=== PATIENT | female | born 1935 | race Asian ===

== ENCOUNTER 2016-09-01 19:34 | Inpatient (IN) | payer MEDICARE ==
[2015-10-09 14:48] VITALS: Ht 152.4 cm; Wt 58.5 kg
[~2016-09-01] VITALS: Ht 152.4 cm; Wt 58.5 kg
[~2016-09-01 19:34] MED LIST: AMLO5TAB92 PO; CAT.1 PO; COLC0.6T51 PO; FAMO40TA7 PO; FERR-57 PO; FOLI-43 PO; GLIP5TAB13 PO; LISI-600 PO; LOSA50TA3 PO; LOVA20TA2 PO; METO50TA3 PO
[2016-09-01 19:40] VITALS: BP 145/59; PULSE 58; RESP 19; TEMP 97.3; O2SAT 96
--- NOTE | 2016-09-01 19:55 | NUR ---
Patient to ER bed 03 to gown for evaluation. Side rails up.
--- NOTE | 2016-09-01 20:05 | NUR ---
pt brought to ED by family member with c/o SOB x1 day, cough&cold x1 week. Pt appeared to have tachypnea, O2 sat at 97% on RA, 3+ edema at BUE and BLE, non-labor breathing, no use of accessory muscle noted, ambulatory. A&Ox4, denies chestpain, denies N/V/D. Will continue to monitor
--- NOTE | 2016-09-01 20:20 | NUR ---
at bedside examining pt
[2016-09-01 21:01] LABS: BASOPHILS % (AUTO) 0.4 % (0.0-2.0); EOSINOPHILS # (AUTO) 0.3 K/uL (0.0-0.4); HEMATOCRIT 34.9 % (36-48); HEMOGLOBIN 11.5 g/dL (12.0-16.0); LYMPHOCYTES # (AUTO) 0.6 K/uL (1.0-5.5); LYMPHOCYTES % (AUTO) 6.9 % (20.5-51.5); MEAN CORPUSCULAR HEMOGLOBIN 26 pg (27-31); MEAN CORPUSCULAR HGB CONC 33 % (32-36); MEAN CORPUSCULAR VOLUME 79 fL (79.0-98.0); MONOCYTES # (AUTO) 0.5 K/uL (0.0-1.0); MONOCYTES % (AUTO) 5.9 % (1.7-9.3); NEUTROPHILS # (AUTO) 7.5 K/uL (1.8-7.7); NEUTROPHILS % (AUTO) 83.8 % (40.0-70.0); PLATELET COUNT (AUTO) 230 K/uL (130-430); RED BLOOD CELL COUNT(AUTO) 4.42 MIL/uL (4.2-6.2); RED CELL DISTRIBUTION WIDTH 14.9 % (9.0-15.0); WHITE BLOOD COUNT (AUTO) 8.9 K/uL (4.8-10.8)
[2016-09-01 21:16] LABS: ANION GAP 9 (5-15); CALCIUM 8.4 mg/dL (8.4-11.0); CHLORIDE 94 mmol/L (98-107); CREATININE 3.78 mg/dL (0.55-1.30); GLUCOSE 133 mg/dL (70-99); POTASSIUM 4.6 mmol/L (3.5-5.1); SODIUM SERUM 126 mmol/L (136-145); UREA NITROGEN, BLOOD 43 mg/dL (8-21)
[2016-09-01 21:25] LABS: ALANINE AMINOTRANSFERASE 20 U/L (12-78); ASPARTATE AMINOTRANSFERASE 54 U/L (10-37); CREATINE KINASE, TOTAL 132 U/L (26-192); TOTAL BILIRUBIN 0.3 mg/dL (0.0-1.0); TOTAL PROTEIN, SERUM 6.6 g/dL (6.4-8.3)
--- NOTE | 2016-09-01 21:30 | NUR ---
Pt in bed , family at bed, no distress noted
[2016-09-01 21:56] LABS: BILIRUBIN,URINE NEGATIVE (NEGATIVE); COLOR,URINE YELLOW (YELLOW); GLUCOSE,URINE TRACE (NEGATIVE); KETONES,URINE NEGATIVE (NEGATIVE); LEUKOCYTE ESTERASE ,URINE NEGATIVE (NEGATIVE); NITRITE, URINE POSITIVE (NEGATIVE); PROTEIN URINE 3+ (NEGATIVE); UROBILINOGEN,URINE 0.2 (0.2-1.0)
[2016-09-01 21:57] LABS: BLOOD, URINE TRACE (NEGATIVE); CLARITY/URINE HAZY (CLEAR)
[2016-09-01] MEDS ORDERED: FUROSEMIDE 40 MG/4 ML VIAL IVP ONE (22:00)
[2016-09-01 22:06] LABS: BACTERIA,URINE MANY /HPF (None Seen); MUCUS,URINE None Seen /LPF (None Seen); RBC,URINE NONE SEEN /HPF (0-3); WBC,URINE >100 /HPF (0-3)
[2016-09-01] MEDS ORDERED: cefTRIAXone 1 GM IVPB PREMIX 50 ML IV ONE (22:30)
--- NOTE | 2016-09-01 22:30 | NUR ---
Pt denies pain, O2 sat 98% on RA, will continue to monitor
[2016-09-01] MEDS ORDERED: SODI650T PO (22:32)
[2016-09-01] MEDS ORDERED: HYDR-4039 PO (22:34)
[2016-09-01] MEDS ORDERED: MAGN400T10 PO (22:39)
[2016-09-01] MEDS ORDERED: AZIT250T PO (22:40)
[2016-09-01] MEDS ORDERED: FURO-150 PO (22:41)
[2016-09-01] MEDS ORDERED: BECL8.7A5 INH (22:42)
[2016-09-01] MEDS ORDERED: PHEDM120 PO (22:43)
[2016-09-01] MEDS ORDERED: ALBU8.5H8 INH (23:02)
--- NOTE | 2016-09-01 23:05 | NUR ---
admission delay, pt went to US
--- NOTE | 2016-09-01 23:25 | NUR ---
opening notes report given at bedside by
--- NOTE | 2016-09-01 23:25 | NUR ---
Patient will be admitted to care of . Admitted to telemetry unit. Will go to room 100B. Belongings list completed. Summary report printed. Report given to Елена BULLOCKdigital commentator to 100B via ACLS protocol. 2 Licensed nurse present. IV present no signs or symptoms of infiltration.
[2016-09-01 23:45] VITALS: BP 150/70; PULSE 58; RESP 20; TEMP 97.3; O2SAT 96
[2016-09-01] MEDS ORDERED: ZOLPIDEM TARTRATE 5 MG TABLET PO PRN (23:45)
[2016-09-01] MEDS ORDERED: cloNIDine HCL 0.1 MG TABLET PO PRN (23:45)
--- NOTE | 2016-09-01 23:45 | NUR ---
OPENING NOTES PATIENT IS RESTING. PATIENT IS SHORT OF BREATH, PULSE OXIMETRY READING IS 96-97%. BED IN LOWEST POSITION, BED ALARM ON, CALL LIGHT WITHIN REACH. WILL CONTINUE TO MONITOR FREQUENTLY.
[2016-09-02] VITALS (9 sets, daily range): BP systolic 117–158; BP diastolic 59–76; PULSE 58–127; RESP 16–20; TEMP 96.8–99; O2SAT 93–98
--- NOTE | 2016-09-02 01:00 | NUR ---
ROUNDS PATIENT IS RESTING COMFORTABLY. NOTABLE RISE AND FALL OF CHEST VISUALIZED. NO SIGNS OR SYMPTOMS OF DISTRESS. PATIENT UPDATED ON PLAN OF CARE. NO SIGNS OR SYMPTOMS OF DISTRESS NOTED. BED IN LOWEST POSITION, BED ALARM ON, CALL LIGHT WITHIN REACH. WILL CONTINUE TO MONITOR.
--- NOTE | 2016-09-02 02:00 | NUR ---
ROUNDS PATIENT IS WHEEZING. DR. BOOTH WILL BE NOTIFIED
--- NOTE | 2016-09-02 02:16 | NUR ---
DR. EMMY SWENSON. NOTIFIED OF PATIENTS WHEEZING. GAVE VERBAL ORDERS FOR TWO ADDITIONAL BREATHING TREATMENTS BEFORE 7AM DOSAGE.
[2016-09-02] MEDS ORDERED: IPRATROPIUM/ALBUTEROL SULFATE 3 ML AMPUL.NEB INH ONE ×2 (02:45)
[2016-09-02] MEDS ORDERED: IPRATROPIUM/ALBUTEROL SULFATE 3 ML AMPUL.NEB ONE (02:50)
--- NOTE | 2016-09-02 03:00 | NUR ---
ROUNDS PATIENT WAS RESTING IN BED. GOWN AND BLANKETS WERE WET FROM WEEPING ARMS DUE TO THE EDEMA. GOWN AND BLANKETS WERE CHANGED. IV SITE LOOKED INFILTRATED AND DID NOT FLUSH. IV ON LEFT HAND D/C. PATIENT IS A HARD STICK. RESOURCE NURSE WAS ASKED TO START IV. PATIENT IS NOW RESTING COMFORTABLY, NO NOTABLE SIGNS OR SYMPTOMS OF DISTRESS. BED IN LOWEST POSITION, BED ALARM ON. CALL LIGHT WITHIN REACH. WILL CONTINUE TO MONITOR.
--- NOTE | 2016-09-02 03:07 | NUR ---
CONSULTATION PAGED REASON FOR CONSULTATION:CHF WAS CONSULT CALLED?Y PERSON WHO WAS NOTIFIED:RESHMA CONSULTING PHYSICIAN:NANDINI JIMENEZ (ROSETTE ANDRADE NARCOTICS INVESTIGATOR) SADDLE AND HARNESS MAKER SPECIALTY:CARDIO SADDLE AND HARNESS MAKER PHONE NUMBER:[phone]
--- NOTE | 2016-09-02 03:16 | NUR ---
CONSULTATION PAGED REASON FOR CONSULTATION:HYPONATREMIA, ARF, CHF WAS CONSULT CALLED?Y PERSON WHO WAS NOTIFIED:RESHMA CONSULTING PHYSICIAN:TAD GORE PAPER MAKER SPECIALTY:NEPHROLOGY PAPER MAKER PHONE NUMBER:[phone]
--- NOTE | 2016-09-02 05:00 | NUR ---
IV PLACEMENT: # 24 gauge angiocath placed to right hand. Use of asceptic technique. Opsite placed over site. Blood return noted. Blood for lab from site. Flushed with cc of normal saline. No evidence of infiltration noted. Patient tolerated. Addendum: 09/02/16 at 0530 by Beth Bobo RN IV PLACEMENT: # 24 gauge angiocath placed to right hand. Use of asceptic technique. Opsite placed over site. Blood return noted. Blood for lab from site. Flushed with 10 cc of normal saline. No evidence of infiltration noted. Patient tolerated.
--- NOTE | 2016-09-02 06:55 | NUR ---
CLOSING NOTES PATIENT RESTING COMFORTABLY. NO SIGNS OR SYMPTOMS OF DISTRESS. ALL NEEDS MET THROUGHOUT SHIFT. FALL RISK PRECAUTIONS IN PLACE. WILL ENDORSE CARE TO ONCOMING NURSE.
[2016-09-02] MEDS: IPRATROPIUM/ALBUTEROL SULFATE 3 ML AMPUL.NEB INH SCH ×2 (07:00→16:35)
--- NOTE | 2016-09-02 07:30 | NUR ---
rn ntoes: patient is aaox 3-4. afebrile. vss stable. left arm edematous and weeping. apply white kayleigh due to leaking fluids on it. rt arm edematous but no weeping noted. rt hand #24. dry/intact saline lock. call lights within reach. safety measures maintained. bed in low position. hob elevated. has bedside commode and instructed patient to call for assistance. will continue to monitor patients status.
[2016-09-02 07:51] LABS: BASOPHILS % (AUTO) 0.4 % (0.0-2.0); EOSINOPHILS # (AUTO) 0.2 K/uL (0.0-0.4); EOSINOPHILS % (AUTO) 2.6 % (0.0-4.0); HEMATOCRIT 34.2 % (36-48); HEMOGLOBIN 11.4 g/dL (12.0-16.0); LYMPHOCYTES # (AUTO) 0.9 K/uL (1.0-5.5); LYMPHOCYTES % (AUTO) 10.7 % (20.5-51.5); MEAN CORPUSCULAR HEMOGLOBIN 27 pg (27-31); MEAN CORPUSCULAR HGB CONC 33 % (32-36); MEAN CORPUSCULAR VOLUME 80 fL (79.0-98.0); MONOCYTES # (AUTO) 0.7 K/uL (0.0-1.0); MONOCYTES % (AUTO) 7.7 % (1.7-9.3); NEUTROPHILS # (AUTO) 6.8 K/uL (1.8-7.7); NEUTROPHILS % (AUTO) 78.6 % (40.0-70.0); PLATELET COUNT (AUTO) 211 K/uL (130-430); RED BLOOD CELL COUNT(AUTO) 4.28 MIL/uL (4.2-6.2); RED CELL DISTRIBUTION WIDTH 14.8 % (9.0-15.0); WHITE BLOOD COUNT (AUTO) 8.6 K/uL (4.8-10.8)
[2016-09-02 08:32] LABS: ALANINE AMINOTRANSFERASE 22 U/L (12-78); ALBUMIN 3.1 g/dL (3.4-4.8); ANION GAP 9 (5-15); ASPARTATE AMINOTRANSFERASE 53 U/L (10-37); CALCIUM 8.4 mg/dL (8.4-11.0); CHLORIDE 92 mmol/L (98-107); CREATININE 3.84 mg/dL (0.55-1.30); GLUCOSE 94 mg/dL (70-99); POTASSIUM 4.2 mmol/L (3.5-5.1); SODIUM SERUM 127 mmol/L (136-145); THYROID STIMULATING HORMONE 1.32 uIu/mL (0.34-4.82); TOTAL BILIRUBIN 0.3 mg/dL (0.0-1.0); TOTAL PROTEIN, SERUM 6.8 g/dL (6.4-8.3); UREA NITROGEN, BLOOD 43 mg/dL (8-21); URIC ACID 8.9 mg/dL (2.4-7.0)
[2016-09-02] MEDS ORDERED: amLODIPine BESYLATE 5 MG TABLET PO SCH (09:00)
[2016-09-02] MEDS: FUROSEMIDE 40 MG/4 ML VIAL IVP SCH (09:08)
[2016-09-02] MEDS: hydrALAZINE HCL 25 MG TABLET PO SCH ×2 (09:09→20:43)
[2016-09-02] MEDS: METOPROLOL TARTRATE 50 MG TABLET PO SCH ×2 (09:10→20:43)
[2016-09-02] MEDS: FAMOTIDINE 20 MG TABLET PO SCH (09:10)
--- NOTE | 2016-09-02 09:14 | NUR ---
due medication given as ordered. made comfortable. brp with assists. has bedside commode.
--- NOTE | 2016-09-02 10:30 | NUR ---
Dr Garces informed of Na is 127. made no order at this time. and informed regarding Scds bilaterally. said will gave heparin subcu
--- NOTE | 2016-09-02 11:00 | NUR ---
DR BOOTH INFORMED OF SCDS. SAID NO WILL ORDER HEPARIN THERAPY
[2016-09-02] MEDS ORDERED: HEPARIN SODIUM,PORCINE 5000 UNITS/ML VIAL SUBCUT ONE (12:30)
--- NOTE | 2016-09-02 14:16 | NUR ---
CANCELLED NEPHROLOGY CONSULT TO DR HILL., CALLED DR MADRIGAL PER DR PERALES THE AIR CARRIER MAINTENANCE INSPECTOR. SPOKE TO BOTH MDS
--- NOTE | 2016-09-02 14:35 | NUR ---
daughter came and bed linen changed. hob elevated.
--- NOTE | 2016-09-02 14:40 | NUR ---
Nephro Consult: for Dr. Coyle, regarding CKD, ordered by Dr. Wei, spoke with
--- NOTE | 2016-09-02 15:00 | NUR ---
due medication given as ordered. made comfortable.
--- NOTE | 2016-09-02 16:21 | NUR ---
pls follow up physical therapy. not yet evaluated.
--- NOTE | 2016-09-02 16:26 | NUR ---
please follow up for Dr Kinsey as a consult. awaiting for to call back.
[2016-09-02] MEDS: INSULIN ASPART 100 UNITS/ML, 10 ML VIAL (NovoLOG) SUBCUT PRN ×2 (17:22→21:49)
--- NOTE | 2016-09-02 18:00 | NUR ---
LATEST BS IS 114MG/DL. NO COVERAGE GIVEN AT THIS TIME. STABLE.
--- NOTE | 2016-09-02 18:51 | NUR ---
ASLEEP AT THIS TIME. STABLE. NO FAMILY AT THE BEDSIDE.
--- NOTE | 2016-09-02 19:30 | NUR ---
sbar report given to incoming nurse BETO BULLOCK.
--- NOTE | 2016-09-02 19:35 | NUR ---
INITIAL NOTE Patient resting on the bed. No acute distress. Respiration even and unlabored. No acute distress. AO x 4. VS: T=99.0, P=90, R=20, B/P=158/76, O2 sat=95%RA. Skin warm and dry to touch. SL intact to right hand, no redness, no swelling. Daughter at bedside. Discussed the safety issue, use call light when need help, and plan of care, verbally understanding. Safety measure maintained. Call light within reached. Bed in low position, side rails up, bed alarm on. Bedside commode at bedside. Will continue to monitor.
[2016-09-02] MEDS: SIMVASTATIN 10 MG TABLET PO SCH (20:42)
[2016-09-02] MEDS: HEPARIN SODIUM,PORCINE 5000 UNITS/ML VIAL SUBCUT SCH (20:46)
--- NOTE | 2016-09-02 21:20 | NUR ---
ROUND Patient resting on the bed. Denied of pain. No acute distress. Family at bedside. Safety measure maintained. Call light within reached. Bed in low position, side rails up. Continue to monitor.
--- NOTE | 2016-09-02 23:10 | NUR ---
ROUND Patient resting on the bed with eyes closed. respiration even and unlabored. No acute distress. Safety measure maintained. Call light within reached. Bed in low position, side rails up. Continue to monitor.
[2016-09-02] MEDS: cefTRIAXone 1 GM IVPB PREMIX 50 ML IV SCH (23:31)
[2016-09-03 00:44] VITALS: BP 132/61; PULSE 63; RESP 20; TEMP 98.7; O2SAT 96
--- NOTE | 2016-09-03 01:35 | NUR ---
ROUND Patient resting on the bed with eyes closed. Respiration even and unlabored. No acute distress. Safety measure maintained. Call light within reached. Bed in low position, side rails up. Continue to monitor.
--- NOTE | 2016-09-03 03:40 | NUR ---
ROUND Patient resting on the bed with eyes closed. Respiration even and unlabored. No acute distress. No SOB. Bed in low position, side rails up, laura alarm on. Call light within reached. Continue to monitor.
[2016-09-03 04:30] VITALS: BP 138/70; PULSE 87; RESP 20; TEMP 97.8; O2SAT 95
--- NOTE | 2016-09-03 05:10 | NUR ---
SENT URINE SAMPLE TO LAB Assisted patient to use bedside commode. No acute distress. Urine sample collected and sent to lab.
--- NOTE | 2016-09-03 06:50 | NUR ---
CLOSING NOTE Patient resting on the bed. Denied of pain. Respiration even and unlabored. No acute distress. SL intact to right hand, no redness, no swelling. All need met. Hourly rounding during shift. Safety measure maintained. Call light within reached. Bed in low position, side rails up, bed alarm on. Will endorse to morning shift nurse.
[2016-09-03 07:36] LABS: ALANINE AMINOTRANSFERASE 21 U/L (12-78); ALBUMIN 2.8 g/dL (3.4-4.8); ANION GAP 8 (5-15); ASPARTATE AMINOTRANSFERASE 51 U/L (10-37); CALCIUM 8.2 mg/dL (8.4-11.0); CHLORIDE 94 mmol/L (98-107); CHOLESTEROL 145 mg/dL (<200); CREATININE 3.92 mg/dL (0.55-1.30); GLUCOSE 90 mg/dL (70-99); HDL CHOLESTEROL 80 mg/dL (>55); LDL CHOLESTEROL 48 mg/dL (<100); POTASSIUM 4.2 mmol/L (3.5-5.1); SODIUM SERUM 129 mmol/L (136-145); TOTAL BILIRUBIN 0.3 mg/dL (0.0-1.0); TOTAL PROTEIN, SERUM 6.3 g/dL (6.4-8.3); TRIGLYCERIDES 50 mg/dL (30-150); UREA NITROGEN, BLOOD 45 mg/dL (8-21)
[2016-09-03 07:36] LABS: BASOPHILS % (AUTO) 0.5 % (0.0-2.0); EOSINOPHILS # (AUTO) 0.3 K/uL (0.0-0.4); HEMATOCRIT 33.8 % (36-48); LYMPHOCYTES # (AUTO) 0.7 K/uL (1.0-5.5); LYMPHOCYTES % (AUTO) 9.3 % (20.5-51.5); MEAN CORPUSCULAR HEMOGLOBIN 26 pg (27-31); MEAN CORPUSCULAR HGB CONC 33 % (32-36); MEAN CORPUSCULAR VOLUME 80 fL (79.0-98.0); MONOCYTES # (AUTO) 0.7 K/uL (0.0-1.0); MONOCYTES % (AUTO) 8.7 % (1.7-9.3); NEUTROPHILS # (AUTO) 6.1 K/uL (1.8-7.7); NEUTROPHILS % (AUTO) 77.5 % (40.0-70.0); PLATELET COUNT (AUTO) 187 K/uL (130-430); RED BLOOD CELL COUNT(AUTO) 4.24 MIL/uL (4.2-6.2); WHITE BLOOD COUNT (AUTO) 7.8 K/uL (4.8-10.8)
--- NOTE | 2016-09-03 08:30 | NUR ---
Handoff rounds. Vital signs. Decreased am intake for breakfast. Patient sleep demands are outweighing po intake.
[2016-09-03 08:33] VITALS: BP 143/67; PULSE 92; RESP 20; TEMP 97.6; O2SAT 98
--- NOTE | 2016-09-03 08:58 | NUR ---
Nutrition Update Osorio Scale 17 noted. Pt admitted for CHF, UTI. Diet: 2gm Na BMI: 25.2 kg/m2 RD to follow per nutrition care standards.
[2016-09-03] MEDS: FAMOTIDINE 20 MG TABLET PO SCH (09:25)
[2016-09-03] MEDS: METOPROLOL TARTRATE 50 MG TABLET PO SCH ×2 (09:26→22:17)
[2016-09-03] MEDS: hydrALAZINE HCL 25 MG TABLET PO SCH ×2 (09:26→22:18)
[2016-09-03] MEDS: FUROSEMIDE 40 MG/4 ML VIAL IVP SCH (09:27)
[2016-09-03] MEDS: HEPARIN SODIUM,PORCINE 5000 UNITS/ML VIAL SUBCUT SCH ×2 (09:28→22:22)
--- NOTE | 2016-09-03 10:32 | NUR ---
Rounds to patient. Needs met. Side lying. Breathing/snoring at baseline.
[2016-09-03 11:40] VITALS: BP 120/70; PULSE 92; RESP 18; TEMP 97.9; O2SAT 98
--- NOTE | 2016-09-03 12:39 | NUR ---
Rounds to patient by surgeon. Call from Doctor Coyle who notes family agrees with patient need for dialysis last hour. Attending Doctor Rounds last hour.
[2016-09-03] MEDS ORDERED: HEPARIN IV FLUSH 300 UNITS/3ML SYR INJ ONE (14:45)
[2016-09-03] MEDS: IPRATROPIUM/ALBUTEROL SULFATE 3 ML AMPUL.NEB INH SCH ×2 (15:59→23:45)
[2016-09-03 16:02] VITALS: BP 141/70; PULSE 90; RESP 18; TEMP 97.9; O2SAT 98
--- NOTE | 2016-09-03 19:30 | NUR ---
PM ASSESSMENT PT. CURRENTLY RECEIVING DIALYSIS AT THIS TIME, DIALYSIS NURSE AT BEDSIDE, NOTED WITH LEFT CHEST ERIN CATHETER, VITAL SIGNS STABLE, NO DISTRESS NOTED, DENIES PAIN, UPDATED WITH PLAN OF CARE, ENCOURAGED PT. TO USE CALL LIGHT FOR ASSISTANCE, CALL LIGHT WITHIN REACH, WILL CONTINUE TO MONITOR.
[2016-09-03 19:50] VITALS: BP 159/78; PULSE 90; RESP 18; TEMP 97.8; O2SAT 97
--- NOTE | 2016-09-03 22:00 | NUR ---
HEMODIALYSIS DONE HD DONE, OUTPUT 2L.
--- NOTE | 2016-09-03 22:10 | NUR ---
ACCUCHECK BLOOD KMLYI=606, NO COVERAGE REQUIRED. WILL CONTINUE TO MONITOR.
[2016-09-03] MEDS: SIMVASTATIN 10 MG TABLET PO SCH (22:17)
[2016-09-03] MEDS: cefTRIAXone 1 GM IVPB PREMIX 50 ML IV SCH (22:23)
--- NOTE | 2016-09-04 | NUR ---
RN ROUNDS PT. RESTING QUIETLY AT THIS TIME, VITAL SIGNS STABLE, NO DISTRESS NOTED, DENIES PAIN, CALL LIGHT WITHIN REACH, WILL CONTINUE TO MONITOR.
[2016-09-04 00:11] VITALS: BP 152/85; PULSE 88; RESP 18; TEMP 98.6; O2SAT 96
--- NOTE | 2016-09-04 02:00 | NUR ---
RN ROUNDS PT. RESTING QUIETLY AT THIS TIME, VITAL SIGNS STABLE, NO DISTRESS NOTED, DENIES PAIN, CALL LIGHT WITHIN REACH, WILL CONTINUE TO MONITOR.
--- NOTE | 2016-09-04 04:00 | NUR ---
RN ROUNDS PT. RESTING QUIETLY AT THIS TIME, VITAL SIGNS STABLE, NO DISTRESS NOTED, DENIES PAIN, CALL LIGHT WITHIN REACH, WILL CONTINUE TO MONITOR.
[2016-09-04 04:06] VITALS: BP 144/67; PULSE 93; RESP 20; TEMP 98.7; O2SAT 93
--- NOTE | 2016-09-04 06:25 | NUR ---
ACCUCHECK AND CLOSING NOTES BLOOD VYEPY=448, NO COVERAGE REQUIRED. VITAL SIGNS STABLE, NO DISTRESS NOTED, DENIES PAIN, ALL ANTICIPATED NEEDS MET, KEPT COMFORTABLE.
[2016-09-04 06:48] LABS: ANION GAP 7 (5-15); CALCIUM 8.1 mg/dL (8.4-11.0); CHLORIDE 97 mmol/L (98-107); CREATININE 2.74 mg/dL (0.55-1.30); GLUCOSE 96 mg/dL (70-99); POTASSIUM 3.6 mmol/L (3.5-5.1); SODIUM SERUM 133 mmol/L (136-145); UREA NITROGEN, BLOOD 24 mg/dL (8-21)
[2016-09-04] MEDS: IPRATROPIUM/ALBUTEROL SULFATE 3 ML AMPUL.NEB INH SCH ×3 (07:12→23:16)
[2016-09-04 10:10] VITALS: BP 166/71; PULSE 92; RESP 16; TEMP 97.3; O2SAT 93
[2016-09-04] MEDS: hydrALAZINE HCL 25 MG TABLET PO SCH ×2 (10:11→21:08)
[2016-09-04] MEDS: FUROSEMIDE 40 MG/4 ML VIAL IVP SCH (10:12)
[2016-09-04] MEDS: METOPROLOL TARTRATE 50 MG TABLET PO SCH ×2 (10:12→21:08)
[2016-09-04] MEDS: FAMOTIDINE 20 MG TABLET PO SCH (10:12)
[2016-09-04] MEDS: HEPARIN SODIUM,PORCINE 5000 UNITS/ML VIAL SUBCUT SCH ×2 (10:16→21:10)
[2016-09-04 10:22] LABS: URINE SODIUM, RANDOM 54 mmol/L (40-220)
[2016-09-04 13:47] VITALS: BP 145/62; PULSE 67; RESP 16; TEMP 97.7; O2SAT 95
--- NOTE | 2016-09-04 15:45 | NUR ---
CM DC PLANNING: RE: OUT-Pt HEMODIALYSIS REC'D MD ORDER TO SET-UP OUT-Pt HD FOR DC PLAN ON 09/05/16. LEFT MESSAGE WITH MD EXCHANGE FOR CALL BACK. S/W WITH NEPHRO/DR. NICHOLSON LARGE ANIMAL VETERINARIAN FOR DR. MADRIGAL TODAY OUT HEMODIALYSIS PREFERENCE FOR Pt. DR. NICHOLSON STATED HE IS NOT DISCHARGING Pt TOMORROW; FURTHER SET-UP CAN BE ARRANGED ON TUESDAY AND THERE IS NO SAT HD AT THEIR PREFERRED CENTER: [facility]: [phone]. CALLED TO [address] WEEKEND ON-CALL CM TO OBTAIN OK IF ABOVE CENTER IS AUTHORIZED; [phone]; HAD TO CALL SEVERAL TIMES TO GET CONTACT WITH CM/NATALIE; FINALLY, REC'D C/F MARIBEL WHO STATED THAT SHE DOESN'T KNOW; AND REFUSED TO TAKE NAME OF MDs TO SEE IF THEY ARE ALSO CONTRACTED BECAUSE [facility] COVERS COSTS OF MD SERVICES; SHE DID NOT HAVE WEEKEND CONTACT FOR ACCOUNTABLE CM. OUT-Pt HD WILL HAVE TO BE COORDINATED ON 09/06/16 WITH BOTH [facility] . INFO FOR FOLLOW-UP LEFT FOR WEEKDAY CMs.
[2016-09-04] MEDS: INSULIN ASPART 100 UNITS/ML, 10 ML VIAL (NovoLOG) SUBCUT PRN (16:54)
[2016-09-04 17:39] VITALS: BP 148/64; PULSE 78; RESP 18; TEMP 99.2; O2SAT 95
[2016-09-04 19:30] VITALS: BP 155/73; PULSE 94; RESP 18; TEMP 98.1; O2SAT 95
--- NOTE | 2016-09-04 19:30 | NUR ---
PM ASSESSMENT PT. A/OX4, VITAL SIGNS STABLE, NO DISTRESS NOTED, DENIES PAIN, NOTED WITH LEFT CHEST ERIN CATHETER IN PLACE, NOTED WITH BILATERAL UPPER EXTREMITY EDEMA 2+, UPDATED WITH PLAN OF CARE, ENCOURAGED PT. TO USE CALL LIGHT FOR ASSISTANCE, CALL LIGHT WITHIN REACH, WILL CONTINUE TO MONITOR.
[2016-09-04] MEDS: SIMVASTATIN 10 MG TABLET PO SCH (21:08)
--- NOTE | 2016-09-04 21:35 | NUR ---
ACCUCHECK BLOOD SKXSS=940, NO COVERAGE REQUIRED, WILL CONTINUE TO MONITOR.
[2016-09-04] MEDS: cefTRIAXone 1 GM IVPB PREMIX 50 ML IV SCH (22:25)
--- NOTE | 2016-09-04 23:34 | NUR ---
BSC ASSISTED PT. TO USE BEDSIDE COMMODE, PT. VOIDED 300 CC CLEAR YELLOW URINE, ASSISTED SAFELY BACK INTO BED.
[2016-09-05] VITALS (7 sets, daily range): BP systolic 136–180; BP diastolic 71–94; PULSE 69–105; RESP 16–18; TEMP 96.6–99; O2SAT 94–100
--- NOTE | 2016-09-05 01:30 | NUR ---
RN ROUNDS PT. RESTING QUIETLY, VITAL SIGNS STABLE, NO DISTRESS NOTED, DENIES PAIN, CALL LIGHT WITHIN REACH, WILL CONTINUE TO MONITOR.
--- NOTE | 2016-09-05 03:30 | NUR ---
RN ROUNDS PT. RESTING QUIETLY, VITAL SIGNS STABLE, NO DISTRESS NOTED, DENIES PAIN, CALL LIGHT WITHIN REACH, WILL CONTINUE TO MONITOR.
--- NOTE | 2016-09-05 05:30 | NUR ---
RN ROUNDS PT. RESTING QUIETLY, VITAL SIGNS STABLE, NO DISTRESS NOTED, DENIES PAIN, CALL LIGHT WITHIN REACH, WILL CONTINUE TO MONITOR.
--- NOTE | 2016-09-05 06:32 | NUR ---
ACCUCHECK, CLOSING BLOOD SUGAR=87, APPLE JUICE GIVEN, VITAL SIGNS STABLE, NO DISTRESS NOTED, DENIES PAIN. ALL ANTICIPATED NEEDS MET, KEPT COMFORTABLE.
[2016-09-05] MEDS: IPRATROPIUM/ALBUTEROL SULFATE 3 ML AMPUL.NEB INH SCH ×3 (07:28→23:00)
--- NOTE | 2016-09-05 08:00 | NUR ---
Patient awake,alert and oriented . Instructed how to use the call hernandez ,bed alarm on . Patient able to use the bedside commode. Left Cain catheter intact with old blood observed, for dialysis today.Saline lock on the right FA intact and patent.
[2016-09-05] MEDS: METOPROLOL TARTRATE 50 MG TABLET PO SCH ×2 (09:00→20:23)
[2016-09-05] MEDS: FUROSEMIDE 40 MG/4 ML VIAL IVP SCH (09:00)
[2016-09-05] MEDS: hydrALAZINE HCL 25 MG TABLET PO SCH ×3 (09:00→20:23)
--- NOTE | 2016-09-05 09:00 | NUR ---
0900 powder worker tnt at bedside.
[2016-09-05] MEDS: FAMOTIDINE 20 MG TABLET PO SCH (09:27)
--- NOTE | 2016-09-05 10:00 | NUR ---
1000 Dialysis in progress.
--- NOTE | 2016-09-05 13:15 | NUR ---
Dialysis completed ,tolerated treatment well. Last BP-174/90 HR-90. Patient denies any discomfort or pain at this time.
[2016-09-05] MEDS: HEPARIN SODIUM,PORCINE 5000 UNITS/ML VIAL SUBCUT SCH ×2 (14:06→20:28)
[2016-09-05] MEDS: ACETAMINOPHEN 325 MG TABLET PO PRN (14:20)
--- NOTE | 2016-09-05 15:00 | NUR ---
Family at bedside ,updated with patient's plan of care.Patient was seen by Dr. Garces ,talked with family regarding outpatient dialysis.
--- NOTE | 2016-09-05 17:00 | NUR ---
Patient sleeping at this time.
--- NOTE | 2016-09-05 18:42 | NUR ---
Patient resting ,denies any pain or discomfort.
--- NOTE | 2016-09-05 19:30 | NUR ---
Initial Notes Pt is A/Ox4, pleasant and cooperative, mostly Tagalog speaking. Family is at bedside. POC discussed with pt and family, all verbalized understanding. VSS. IV intact, saline lock. Non pitting edema noted to bilateral upper extremities with some bruising and redness. Cain cath noted to left upper chest, cdi. No acute distress or sob noted. Breathing is even and unlabored. Pt educated on correct use of call light and bed alarm. Safety precaution in place, side rails up x3, with side rails up x3, with bed in lowest, locked position, bed alarm on at all times. All needs met at this time. Call light in reach. Will continue to monitor.
[2016-09-05] MEDS: SIMVASTATIN 10 MG TABLET PO SCH (20:22)
--- NOTE | 2016-09-05 20:22 | NUR ---
Scheduled medications/Teaching Pt educated on all scheduled medications and adverse reactions. Pt requested sleep aid. Pt medicated with Ambien 5 mg po for sleep aid. Pt educated on side effects of ambien such as dizziness, and loss of coordination. Pt agreed with teaching, and calling for assist in and out of bed. All needs met at this time. Call light in hand. Will continue to monitor.
[2016-09-05] MEDS: cefTRIAXone 1 GM IVPB PREMIX 50 ML IV SCH (22:48)
[2016-09-06] VITALS: BP 141/76; PULSE 91; RESP 15; TEMP 98.5; O2SAT 97
--- NOTE | 2016-09-06 02:11 | NUR ---
PATIENT RESTING: Patient resting quietly. No acute distress noted. Vital signs within normal range. Call light in hand. Will continue to monitor.
[2016-09-06 03:52] VITALS: BP 150/73; PULSE 72; RESP 18; TEMP 99.8; O2SAT 93
--- NOTE | 2016-09-06 04:30 | NUR ---
Rounds Pt is sleeping comfortably at this time. No acute distress noted or sob. Call light in reach. Will continue to monitor.
[2016-09-06] MEDS: ACETAMINOPHEN 325 MG TABLET PO PRN (05:52)
--- NOTE | 2016-09-06 06:33 | NUR ---
Closing Notes Cain cath dressing noted to be soiled with dry blood. Covering RN notified, and changed dressing. Pt c/o of 3/10 arthritis pain to left thumb, pt medicated with Tylenol 650mg po as ordered for mild pain. No acute distress or sob noted. Pt in stable condition. VSS. IV intact. All needs met throughout shift. Will endorse care to am nurse. Call light in hand.
[2016-09-06] MEDS: IPRATROPIUM/ALBUTEROL SULFATE 3 ML AMPUL.NEB INH SCH ×2 (07:08→15:00)
[2016-09-06 07:24] LABS: ALANINE AMINOTRANSFERASE 30 U/L (12-78); ALBUMIN 2.4 g/dL (3.4-4.8); ANION GAP 7 (5-15); ASPARTATE AMINOTRANSFERASE 80 U/L (10-37); CALCIUM 8.2 mg/dL (8.4-11.0); CHLORIDE 99 mmol/L (98-107); CREATININE 2.51 mg/dL (0.55-1.30); GLUCOSE 97 mg/dL (70-99); POTASSIUM 3.5 mmol/L (3.5-5.1); SODIUM SERUM 136 mmol/L (136-145); TOTAL BILIRUBIN 0.3 mg/dL (0.0-1.0); TOTAL PROTEIN, SERUM 6.3 g/dL (6.4-8.3); UREA NITROGEN, BLOOD 20 mg/dL (8-21)
[2016-09-06 07:28] LABS: BASOPHILS % (AUTO) 0.4 % (0.0-2.0); EOSINOPHILS # (AUTO) 0.5 K/uL (0.0-0.4); HEMATOCRIT 34.1 % (36-48); HEMOGLOBIN 10.9 g/dL (12.0-16.0); LYMPHOCYTES # (AUTO) 0.6 K/uL (1.0-5.5); LYMPHOCYTES % (AUTO) 5.7 % (20.5-51.5); MEAN CORPUSCULAR HEMOGLOBIN 26 pg (27-31); MEAN CORPUSCULAR HGB CONC 32 % (32-36); MEAN CORPUSCULAR VOLUME 81 fL (79.0-98.0); MONOCYTES # (AUTO) 0.9 K/uL (0.0-1.0); NEUTROPHILS # (AUTO) 8.1 K/uL (1.8-7.7); NEUTROPHILS % (AUTO) 79.9 % (40.0-70.0); PLATELET COUNT (AUTO) 132 K/uL (130-430); RED BLOOD CELL COUNT(AUTO) 4.24 MIL/uL (4.2-6.2); RED CELL DISTRIBUTION WIDTH 15.5 % (9.0-15.0); WHITE BLOOD COUNT (AUTO) 10.1 K/uL (4.8-10.8)
--- NOTE | 2016-09-06 07:44 | NUR ---
AM ROUNDS Pt sitting up at edge of bed, eating breakfast...HL to RFA flushes well...Cain cath to left chest wall dressing C/D/I...Pt makes needs known...Call light/phone w/in reach...Will cont to monitor
[2016-09-06 09:45] VITALS: BP 133/64; PULSE 73; RESP 18; TEMP 98.2; O2SAT 96
[2016-09-06] MEDS: METOPROLOL TARTRATE 50 MG TABLET PO SCH (09:48)
[2016-09-06] MEDS: hydrALAZINE HCL 25 MG TABLET PO SCH (09:48)
[2016-09-06] MEDS: FAMOTIDINE 20 MG TABLET PO SCH (09:48)
[2016-09-06] MEDS: HEPARIN SODIUM,PORCINE 5000 UNITS/ML VIAL SUBCUT SCH (09:50)
[2016-09-06] MEDS: FUROSEMIDE 40 MG/4 ML VIAL IVP SCH (10:13)
[2016-09-06] MEDS ORDERED: TUBERCULIN,PURIF.PROT.DERIV. 0.1 ML SYR ID ONE (10:30)
--- NOTE | 2016-09-06 10:54 | NUR ---
DC PLANNING: S/W moses Horton at [facility] requesting and authorization for outpatient HD. Per Clfiford " may use [facility], and to fax request auth. attn to Clifford at fax# [phone], phone # [phone]. Aida. gersonp made aware.
--- NOTE | 2016-09-06 11:03 | NUR ---
DISCHARGE PLANNING Returned call to Franca at [facility] who stated chair time available M/W/F time will be given once all needed MR has been faxed to Uzma at [place] scheduling office [phone]. [facility] Addendum: 09/06/16 at 1233 by Melissa CARMONA Received call from Uzma at [facility] central office who was made aware still pending Hep Panel and TB results. Uzma was provided with SOY Horton at [facility] contact info. DCP will fax when all requested MR available. Addendum: 09/07/16 at 1211 by Melissa CARMONA Trevon Horton at [facility] [phone] Ext [phone] left voice message requesting return call back with update on insurance auth for outpt dialysis.
[2016-09-06 11:33] VITALS: BP 143/65; PULSE 86; RESP 19; TEMP 97.2; O2SAT 96
[2016-09-06] MEDS ORDERED: AMOX-520 PO (13:21)
[2016-09-06 15:40] VITALS: BP 154/80; PULSE 58; RESP 19; TEMP 97; O2SAT 100
[2016-09-06 15:47] VITALS: BP 154/80; PULSE 58; RESP 19; TEMP 97; O2SAT 100
--- NOTE | 2016-09-06 16:00 | NUR ---
ROUNDS PT STABLE...NO CHANGES...AWAITING DAUGHTER FOR D/C HOME...WILL CONT TO MONITOR
--- NOTE | 2016-09-06 17:10 | NUR ---
D/C Patient Patient AND DAUGHTER given medication reconciliation form and D/C instructions. Exit Care provided. Patient verbalized understanding. MD discussed with patient the results and treatment provided. Ambulatory with steady gait for discharge to home. Patient in stable condition, ID band removed. IV catheter removed, intact and dressing applied, no active bleeding. Rx of AMOXICILLIN given VIA E-PRESCRIPTION. Patient educated on pain management. All belongings sent with patient.
[2016-09-07 06:06] LABS: HEPATITIS A AB, IgM Negative (Negative); HEPATITIS B CORE AB, IgM Negative (Negative); HEPATITIS B SURFACE AG Negative (Negative)
[2016-09-07] MEDS ORDERED: FUROSEMIDE 40 MG TABLET PO SCH (09:00)
--- NOTE | 2016-09-07 09:40 | NUR ---
DISCHARGE PLANNING Spoke with Uzma at [facility] central office , fax requested records with TB results pending. Uzma stated chair time can not be arranged till all required testing results are available. Uzma will follow up with [facility] for estimated chair time on Sunday 09/10. Director Isabel made aware pending TB results needed prior to assigned chair time can be given. [facility] will follow up. Addendum: 09/07/16 at 1207 by Melissa CARMONA Faxed radiology report with noted TB clearance. Spoke with Uzma at [facility] office who confirmed fax was received and will make arrangements for oupt dialysis with [facility]. Uzma is currently follow up on insurance auth and will return call to [facility] once schedule and chair time has been confirmed for patient. Addendum: 09/07/16 at 1307 by Melissa Michelle DP Spoke with SOY Horton at [facility] who requested HD order be faxed with noted frequency on order. SOY Huang made aware. Clifofrd requested order to be faxed to [phone]. Addendum: 09/07/16 at 1443 by Melissa CARMONA Faxed updated order to Clifford at [facility]. Called Uzma at [facility] requesting return call back with confirmation on scheduled and chair time. DCP will follow up. Addendum: 09/07/16 at 1609 by Melissa Michelle DP Received call from Uzma at [facility] who stated patient stated Outpt dialysis with [facility] - [place] [phone]. Called Clifford at [facility] [phone] Ext [phone] left voice message requesting return call back confirming HD facility authorized. Will follow up. Addendum: 09/08/16 at 1136 by Sal Chan RN LATE ENTRY: 1630 on 09/07/16: F/U on out patient HD arrangement. >> S/W the pt. Pema pennington via phone # [phone] stated that " the pt. is at the [facility] ([facility] in [place] # [phone]. Her renal md., " dr. Coyle told her to come here." Her pmd is dr. Yanes. >> S/W Clifford lopes at [facility], confirmed that [facility] is a contracted HD facility. Clifford will take care of the auth with [facility].
--- NOTE | 2016-09-10 14:54 | NUR ---
Discharge Follow Up Phone Call CADD OPERATOR phoned patient, , on 09/08/16 and left a voicemail message. CADD OPERATOR phoned and spoke with patient's daughter, Leticia today. She stated patient was doing okay and attending dialysis. Patient has been taking her antibiotic as prescribed. Patient has a follow up appointment with her PCP on 09/14/16. Patient's daughter would like a wheelchair to bring patient to dialysis. CADD OPERATOR suggested she discuss this with the PCP and the dialysis center. CADD OPERATOR also provided the information for the [facility].
== END 2016-09-06 17:10 | disposition home or self-care (01) | DRG 194 ==
LOC: SED 19:34 → STU 22:41
PROVIDERS: ADMIT Internal Medicine; ATTEND Internal Medicine
PROC: 02HV33Z Insertion of Infusion Device into Superior Vena Cava, Percutaneous Approach (ICD-10-PCS; principal; 2016-09-03)
PROC: B548ZZA Ultrasonography of Superior Vena Cava, Guidance (ICD-10-PCS; 2016-09-03)
PROC: 5A1D60Z (ICD-10-PCS; 2016-09-03)
DX: I13.2 Hypertensive heart and chronic kidney disease with heart failure and with stage 5 chronic kidney disease, or end stage renal disease (principal); N17.0 Acute kidney failure with tubular necrosis; E43 Unspecified severe protein-calorie malnutrition; R18.8 Other ascites; E11.22 Type 2 diabetes mellitus with diabetic chronic kidney disease; E11.42 Type 2 diabetes mellitus with diabetic polyneuropathy; E87.1 Hypo-osmolality and hyponatremia; N18.6 End stage renal disease; N18.5 Chronic kidney disease, stage 5; N39.0 Urinary tract infection, site not specified; J44.9 Chronic obstructive pulmonary disease, unspecified; N05.2 Unspecified nephritic syndrome with diffuse membranous glomerulonephritis; D63.8 Anemia in other chronic diseases classified elsewhere; L03.114 Cellulitis of left upper limb; J45.901 Unspecified asthma with (acute) exacerbation; E78.5 Hyperlipidemia, unspecified; Z96.649 Presence of unspecified artificial hip joint; M19.90 Unspecified osteoarthritis, unspecified site; M10.9 Gout, unspecified; Z83.3 Family history of diabetes mellitus; Z90.49 Acquired absence of other specified parts of digestive tract; Z85.05 Personal history of malignant neoplasm of liver; Z87.81 Personal history of (healed) traumatic fracture; Z79.899 Other long term (current) drug therapy; Z68.25 Body mass index [BMI] 25.0-25.9, adult; I50.33 Acute on chronic diastolic (congestive) heart failure
CPT/HCPCS: 36415; 71010; 76770; 80048; 80053; 80061; 80074; 81000-TC; 82550-TC; 82570-TC; 82962; 83036; 83605; 83735-TC; 83880; 83970; 84100-TC; 84302-TC; 84443-TC; 84484; 84550-TC; 85025; 86580; 87040-TC; 87086; 87186-TC; 90935; 90937; 93005; 93306; 94640; 94760; 96365; 96375; 97116-GP; 99285; J0696; J1644; J1815; J1940; J7030

== ENCOUNTER 2017-03-25 16:03 | Inpatient (IN) | payer MEDICARE ==
[~2017-03-25] VITALS: Ht 152.4 cm; Wt 48.1 kg
[~2017-03-25 16:03] MED LIST changes: +ALBU8.5H8 INH; -AMLO5TAB92 PO; +AMOX-520 PO; +BECL8.7A5 INH; -CAT.1 PO; -COLC0.6T51 PO; -FOLI-43 PO; +FURO-150 PO; -GLIP5TAB13 PO; +HYDR-4039 PO; -LISI-600 PO; -LOSA50TA3 PO; +MAGN400T10 PO
[2017-03-25 16:20] VITALS: BP_SYST 163
--- NOTE | 2017-03-25 16:25 | NUR ---
Placed in room 3 . Placed on three dimensional map modeler, blood pressure machine and pulse oximeter. To gown for exam. Side rails up.
--- NOTE | 2017-03-25 16:36 | NUR ---
pt brought in by her daughter, pt went to [facility] had a EKG for cataract surgery clearance.called by her PMD to come to ER for evaluation of abnormal EKG.show afib. pt has no physical complaint,awake,alert oriented x4, monitor shows Sinus rhythm with PVCs.
--- NOTE | 2017-03-25 16:40 | NUR ---
ER at bedside examining patient.
[2017-03-25 16:50] LABS: BASOPHILS # (AUTO) 0.1 K/uL (0.0-0.2); BASOPHILS % (AUTO) 0.7 % (0.0-2.0); EOSINOPHILS # (AUTO) 0.9 K/uL (0.0-0.4); EOSINOPHILS % (AUTO) 11.1 % (0.0-4.0); HEMATOCRIT 37.8 % (36-48); HEMOGLOBIN 12.4 g/dL (12.0-16.0); LYMPHOCYTES # (AUTO) 0.8 K/uL (1.0-5.5); LYMPHOCYTES % (AUTO) 10.5 % (20.5-51.5); MEAN CORPUSCULAR HEMOGLOBIN 28 pg (27-31); MEAN CORPUSCULAR HGB CONC 33 % (32-36); MEAN CORPUSCULAR VOLUME 84 fL (79.0-98.0); MONOCYTES # (AUTO) 0.6 K/uL (0.0-1.0); MONOCYTES % (AUTO) 7.6 % (1.7-9.3); NEUTROPHILS # (AUTO) 5.5 K/uL (1.8-7.7); NEUTROPHILS % (AUTO) 70.1 % (40.0-70.0); PLATELET COUNT (AUTO) 262 K/uL (130-430); RED BLOOD CELL COUNT(AUTO) 4.48 MIL/uL (4.2-6.2); RED CELL DISTRIBUTION WIDTH 15.9 % (9.0-15.0); WHITE BLOOD COUNT (AUTO) 7.9 K/uL (4.8-10.8)
[2017-03-25 16:52] LABS: ANION GAP 12 (5-15); CALCIUM 9.1 mg/dL (8.4-11.0); CHLORIDE 94 mmol/L (98-107); CREATININE 3.57 mg/dL (0.55-1.30); GLUCOSE 143 mg/dL (70-99); POTASSIUM 3.4 mmol/L (3.5-5.1); SODIUM SERUM 132 mmol/L (136-145); UREA NITROGEN, BLOOD 24 mg/dL (8-21)
--- NOTE | 2017-03-25 16:53 | NUR ---
# 22 gauge angiocath placed to left hand . Use of asceptic technique. Opsite placed over site. Blood return noted. Blood for lab drawn from site. Flushed with 10 cc of normal saline. No evidence of infiltration noted. Patient tolerated well.
[2017-03-25 16:54] LABS: PROTHROMBIN TIME 10.6 SECS (9.5-12.5)
[2017-03-25 16:57] LABS: ALANINE AMINOTRANSFERASE 20 U/L (12-78); ALBUMIN 3.2 g/dL (3.4-4.8); ASPARTATE AMINOTRANSFERASE 61 U/L (10-37); TOTAL BILIRUBIN 0.4 mg/dL (0.0-1.0)
--- NOTE | 2017-03-25 17:32 | NUR ---
2nd EKG done,read by Dr Gil
[2017-03-25] MEDS ORDERED: NIFE-2 PO (17:43)
[2017-03-25] MEDS ORDERED: GLIP-195 PO (17:43)
--- NOTE | 2017-03-25 17:43 | NUR ---
Medication reconciliation completed with information provided by PT'S daughter. Any prior medication reconciliation on file was reviewed and corrected.
[2017-03-25] MEDS ORDERED: NACL 0.9% 1,000 ML IV SCH (17:57)
[2017-03-25] MEDS ORDERED: ZOLPIDEM TARTRATE 5 MG TABLET PO PRN ×2 (18:00→19:30)
[2017-03-25] MEDS ORDERED: MORPHINE 2 MG/ML INJ. SYRINGE IVP PRN ×3 (18:00→19:30)
[2017-03-25] MEDS ORDERED: HYDROcodone/ACETAMIN 10-325 MG TAB PO PRN (18:00)
[2017-03-25] MEDS ORDERED: SIMETHICONE 80 MG TAB.CHEW PO PRN (18:00)
[2017-03-25] MEDS ORDERED: BISACODYL 10 MG/SUPPOSITORY RC PRN (18:00)
[2017-03-25] MEDS ORDERED: ACETAMINOPHEN 325 MG TABLET PO PRN ×2 (18:00→19:30)
[2017-03-25] MEDS ORDERED: ONDANSETRON HCL 4 MG/2 ML VIAL IVP PRN ×2 (18:00→19:30)
[2017-03-25] MEDS ORDERED: POTASSIUM CHLORIDE 20 MEQ TAB.PRT.SR PO PRN (18:00)
--- NOTE | 2017-03-25 18:13 | NUR ---
Patient will be admitted to [facility]. Admitted to TELE unit. Will go to room 129A . Belongings list completed. Summary report printed. Report will be given at bedside.
--- NOTE | 2017-03-25 18:23 | NUR ---
ADMISSION NOTE Received patient from ER via jesus, received report from CARLOS BULLOCK. Patient admitted with diagnosis of CARDIAC ARRYTHMIA. Patient oriented to hospital routine, call light, toileting and safety-patient verbalized understanding.
[2017-03-25 18:33] VITALS: BP_SYST 164
[2017-03-25 18:33] LABS: THYROID STIMULATING HORMONE 1.54 uIu/mL (0.34-4.82)
[2017-03-25 18:34] LABS: FREE T4 (FREE THYROXINE) 1.3 ng/dl (0.8-1.5)
--- NOTE | 2017-03-25 18:54 | NUR ---
Consult Called Reason for consultation: Arrythmia Consulting Physician: Jonn Eaton (Dr. Myrick summer sessions director) Person who was notified: Wilmar Perez by Dr. Toussaint
[2017-03-25] MEDS ORDERED: DEXTROSE 50% JECT 50 ML DISP.SYRIN IVP PRN (19:30)
[2017-03-25] MEDS ORDERED: cloNIDine HCL 0.1 MG TABLET PO PRN (19:30)
[2017-03-25] MEDS ORDERED: POTASSIUM CHLORIDE 10 MEQ TAB.PRT.SR PO PRN (19:30)
[2017-03-25] MEDS ORDERED: INSULIN ASPART 100 UNITS/ML, 10 ML VIAL (NovoLOG) SUBCUT PRN (19:30)
[2017-03-25] MEDS ORDERED: DOCUSATE SODIUM 100 MG CAPSULE PO PRN (19:30)
[2017-03-25] MEDS ORDERED: LORazepam 2 MG/ML VIAL IVP PRN (19:30)
[2017-03-25] MEDS ORDERED: MAGNESIUM SULFATE 50 ML IV PRN (19:30)
--- NOTE | 2017-03-25 19:56 | NUR ---
Consultation Called Reason for consultation: cdk Person who was notified: Valerie Consulting Physician: Willy Mcdonald MD (Dr. Campbell vocational horticulture instructor) Cold Roll Packer Sheet Iron Ordered by Dr. Pak [facility]
[2017-03-25 20:00] VITALS: BP_SYST 156
--- NOTE | 2017-03-25 20:00 | NUR ---
Opening notes. Received patient in bed,family member at bed side, report from morning nurse; alert/oriented, breathing spontaneously, in RA;continent b/b, ambulatory with cane,Hl to Lt hand,patent/intact, denies any pain at this time;call light in reach,bed alarm on.
[2017-03-25] MEDS: NIFEDIPINE 30 MG TAB.ER.24 PO SCH (21:54)
[2017-03-25] MEDS: METOPROLOL TARTRATE 50 MG TABLET PO SCH (21:54)
[2017-03-25] MEDS: DOCUSATE SODIUM 100 MG CAPSULE PO SCH (21:55)
[2017-03-25] MEDS: hydrALAZINE HCL 25 MG TABLET PO SCH (21:56)
[2017-03-25] MEDS: HEPARIN SODIUM,PORCINE 5000 UNITS/ML VIAL SUBCUT SCH (21:57)
[2017-03-26 00:16] VITALS: BP_SYST 151
[2017-03-26 04:07] VITALS: BP_SYST 134
--- NOTE | 2017-03-26 06:30 | NUR ---
Closing notes. Condition stable,tolerated meds well, slept all night, no c/o pain during the shift,will continue with current plan of care, now,in bed sleeping,with no distress; call light in reach, bed in low position, bed alarm on.
--- NOTE | 2017-03-26 07:28 | NUR ---
Consult cancelled: called [facility] and spoke with Yajaira. Cancelled consult per request of Dr. Pak.
--- NOTE | 2017-03-26 07:30 | NUR ---
Cardio Denies any chest pain , telemetry rhythm NSR with 1 ' AV BLOCK , blood pressure controlled, seen and examined by DR. Pak with n.o. carried out, plan of care discussed with patient , possible hemodialysis, consult , medication, safety verbalized understanding.needs attended.
--- NOTE | 2017-03-26 07:30 | NUR ---
New consult called: For Dr. Coyle regarding CDK and ESRD, ordered by Dr. Pak, spoke with Piedad.
[2017-03-26 07:43] VITALS: BP_SYST 130
[2017-03-26] MEDS: DOCUSATE SODIUM 100 MG CAPSULE PO SCH ×2 (08:55→20:24)
[2017-03-26] MEDS: FAMOTIDINE 20 MG TABLET PO SCH (08:55)
[2017-03-26] MEDS: HEPARIN SODIUM,PORCINE 5000 UNITS/ML VIAL SUBCUT SCH ×2 (08:57→20:23)
[2017-03-26] MEDS: METOPROLOL TARTRATE 50 MG TABLET PO SCH ×2 (09:00→20:25)
[2017-03-26] MEDS: MAGNESIUM OXIDE 400 MG TABLET PO SCH (09:00)
[2017-03-26] MEDS: NIFEDIPINE 30 MG TAB.ER.24 PO SCH ×2 (09:00→20:24)
[2017-03-26] MEDS: hydrALAZINE HCL 25 MG TABLET PO SCH ×2 (09:00→20:25)
[2017-03-26 09:10] LABS: BASOPHILS # (AUTO) 0.1 K/uL (0.0-0.2); BASOPHILS % (AUTO) 0.7 % (0.0-2.0); EOSINOPHILS # (AUTO) 1.1 K/uL (0.0-0.4); EOSINOPHILS % (AUTO) 14.4 % (0.0-4.0); HEMATOCRIT 37.6 % (36-48); HEMOGLOBIN 12.4 g/dL (12.0-16.0); LYMPHOCYTES % (AUTO) 12.9 % (20.5-51.5); MEAN CORPUSCULAR HEMOGLOBIN 28 pg (27-31); MEAN CORPUSCULAR HGB CONC 33 % (32-36); MEAN CORPUSCULAR VOLUME 85 fL (79.0-98.0); MONOCYTES # (AUTO) 0.5 K/uL (0.0-1.0); MONOCYTES % (AUTO) 6.2 % (1.7-9.3); NEUTROPHILS # (AUTO) 4.9 K/uL (1.8-7.7); NEUTROPHILS % (AUTO) 65.8 % (40.0-70.0); PLATELET COUNT (AUTO) 285 K/uL (130-430); RED BLOOD CELL COUNT(AUTO) 4.44 MIL/uL (4.2-6.2); RED CELL DISTRIBUTION WIDTH 16.5 % (9.0-15.0); WHITE BLOOD COUNT (AUTO) 7.6 K/uL (4.8-10.8)
--- NOTE | 2017-03-26 09:20 | NUR ---
Patient resting , informed regarding hemodialysis scheduled and agreed , consent given.
[2017-03-26 09:25] LABS: ANION GAP 13 (5-15); CALCIUM 8.9 mg/dL (8.4-11.0); CHLORIDE 96 mmol/L (98-107); CREATININE 4.11 mg/dL (0.55-1.30); GLUCOSE 192 mg/dL (70-99); POTASSIUM 3.8 mmol/L (3.5-5.1); SODIUM SERUM 135 mmol/L (136-145); UREA NITROGEN, BLOOD 38 mg/dL (8-21)
[2017-03-26 11:31] VITALS: BP_SYST 137
--- NOTE | 2017-03-26 11:50 | NUR ---
On hemodialysis vitals sign monitored.
--- NOTE | 2017-03-26 14:50 | NUR ---
Hemodialysis completed Vitals sign stable denies any pain , total output 2 liters ,needs attended
[2017-03-26 15:37] VITALS: BP_SYST 133
[2017-03-26 20:00] VITALS: BP_SYST 122
--- NOTE | 2017-03-26 20:00 | NUR ---
Initial Notes Received patient resting in bed, awake, alert, oriented. Patient denies any acute distress or pain at this time. Breathing is even and unlabored on room air. IV site patent/clean/dry. Educated patient regarding use of call light for assistance and fall precautions, patient verbalized understanding. Call light in hand, fall precautions in place. Will continue to monitor for changes and safety.
--- NOTE | 2017-03-26 22:07 | NUR ---
Rounds Patient resting in bed with eyes closed, easily aroused. Patient denies any acute distress or pain at this time. Breathing is even and unlabored. Informed patient a urine sample is requested for test ordered by her MD, patient verbalized understanding but unable to provided at this time. Needs addressed. Call light in hand.
--- NOTE | 2017-03-27 | NUR ---
Rounds Patient resting in bed with eyes closed, easily aroused. Patient denies any acute distress, pain or needs at this time. Reminding patient regarding urine sample requested, patient verbalized understanding. Call light in hand.
[2017-03-27 01:05] VITALS: BP_SYST 129
--- NOTE | 2017-03-27 02:00 | NUR ---
Rounds Patient resting in bed with eyes closed. No acute distress noted, breathing is even and unlabored. Call light in hand, fall precautions in place.
[2017-03-27 04:22] LABS: BILIRUBIN,URINE 1+ (NEGATIVE); BLOOD, URINE NEGATIVE (NEGATIVE); CLARITY/URINE CLEAR (CLEAR); COLOR,URINE YELLOW (YELLOW); GLUCOSE,URINE NEGATIVE (NEGATIVE); KETONES,URINE 1+ (NEGATIVE); LEUKOCYTE ESTERASE ,URINE NEGATIVE (NEGATIVE); NITRITE, URINE NEGATIVE (NEGATIVE); PROTEIN URINE 3+ (NEGATIVE); UROBILINOGEN,URINE 0.2 (0.2-1.0)
[2017-03-27 04:29] LABS: BACTERIA,URINE MODERATE /HPF (None Seen); HYALINE CASTS, URINE 0-10 /LPF (None Seen); RBC,URINE 0-3 /HPF (0-3)
[2017-03-27 04:30] LABS: FINE GRANULAR CASTS,URINE 0-10 /LPF (None Seen)
--- NOTE | 2017-03-27 04:30 | NUR ---
Rounds Patient resting in bed with eyes closed, easily aroused. Patient denies any acute distress, pain, or needs at this time. Breathing is even and unlabored. Call light in hand, fall precautions in place.
[2017-03-27 04:35] VITALS: BP_SYST 137
[2017-03-27 05:59] LABS: ANION GAP 11 (5-15); CALCIUM 8.9 mg/dL (8.4-11.0); CHLORIDE 98 mmol/L (98-107); CREATININE 3.55 mg/dL (0.55-1.30); GLUCOSE 104 mg/dL (70-99); POTASSIUM 3.8 mmol/L (3.5-5.1); SODIUM SERUM 134 mmol/L (136-145); UREA NITROGEN, BLOOD 34 mg/dL (8-21)
[2017-03-27 06:08] LABS: BASOPHILS # (AUTO) 0.1 K/uL (0.0-0.2); BASOPHILS % (AUTO) 0.8 % (0.0-2.0); EOSINOPHILS % (AUTO) 14.2 % (0.0-4.0); HEMATOCRIT 36.3 % (36-48); LYMPHOCYTES # (AUTO) 1.3 K/uL (1.0-5.5); LYMPHOCYTES % (AUTO) 17.3 % (20.5-51.5); MEAN CORPUSCULAR HEMOGLOBIN 28 pg (27-31); MEAN CORPUSCULAR HGB CONC 33 % (32-36); MEAN CORPUSCULAR VOLUME 85 fL (79.0-98.0); MONOCYTES # (AUTO) 0.6 K/uL (0.0-1.0); MONOCYTES % (AUTO) 8.3 % (1.7-9.3); NEUTROPHILS # (AUTO) 4.3 K/uL (1.8-7.7); NEUTROPHILS % (AUTO) 59.4 % (40.0-70.0); PLATELET COUNT (AUTO) 234 K/uL (130-430); RED BLOOD CELL COUNT(AUTO) 4.26 MIL/uL (4.2-6.2); RED CELL DISTRIBUTION WIDTH 16.1 % (9.0-15.0); WHITE BLOOD COUNT (AUTO) 7.3 K/uL (4.8-10.8)
--- NOTE | 2017-03-27 06:37 | NUR ---
Closing Notes Patient resting in bed with eyes closed, easily aroused. Patient denies any acute distress or pain at this time. Breathing is even and unlabored. IV site patent/clean/dry, no S/S infection/infiltration noted. Needs addressed throughout shift. Call light in hand, fall precautions in place. Will continue to monitor for changes and safety, and endorse all patient care/needs to oncoming nurse.
[2017-03-27 08:33] VITALS: BP_SYST 135
--- NOTE | 2017-03-27 08:34 | NUR ---
OPENING NOTE RECEIVED PT AAOX4 IN NO ACUTE DISTRESS. DENIES ANY PAIN OR SOB. SITTING UP IN BED EATING BREAKFAST. ERIN CATHETER NOTED TO RT CHEST WITH DRESSING C/D/I. SL TO LT HAND PATENT. SAFETY MEASURES IN PLACE WITH CALL LIGHT WITHIN REACH. PT ENCOURAGED TO USE CALL LIGHT FOR ASSISTANCE. VERBALIZED UNDERSTANDING.
[2017-03-27] MEDS: FAMOTIDINE 20 MG TABLET PO SCH (09:04)
[2017-03-27] MEDS: METOPROLOL TARTRATE 50 MG TABLET PO SCH (09:04)
[2017-03-27] MEDS: DOCUSATE SODIUM 100 MG CAPSULE PO SCH (09:05)
[2017-03-27] MEDS: MAGNESIUM OXIDE 400 MG TABLET PO SCH (09:05)
[2017-03-27] MEDS: NIFEDIPINE 30 MG TAB.ER.24 PO SCH (09:05)
[2017-03-27] MEDS: hydrALAZINE HCL 25 MG TABLET PO SCH (09:05)
[2017-03-27 09:06] LABS: T4 (THYROXINE) 10.6 ug/dL (4.5-12.0)
[2017-03-27] MEDS: HEPARIN SODIUM,PORCINE 5000 UNITS/ML VIAL SUBCUT SCH (09:09)
[2017-03-27] MEDS ORDERED: METO25TA6 PO (09:11)
[2017-03-27 10:33] VITALS: BP_SYST 135
--- NOTE | 2017-03-27 11:27 | NUR ---
DISCHARGE PT TO BE DISCHARGED HOME TODAY. SPOKE WITH PT'S DAUGHTER JANES AND INFORMED HER OF DISCHARGE. TRANSITION OF CARE DISCUSSED WITH PT AND ALL PAPERWORK PLACED IN CARE FOLDER. EXPLAINED TO PT THAT SL AND TELEMETRY WILL BE REMOVED ONCE FAMILY ARRIVES AND SHE IS READY TO LEAVE. PT VERBALIZED UNDERSTANDING.
[2017-03-27 12:20] VITALS: BP_SYST 136
--- NOTE | 2017-03-27 13:35 | NUR ---
D/C Patient Patient given medication reconciliation form and D/C instructions. Exit Care provided. Patient verbalized understanding. MD discussed with patient the results and treatment provided. Ambulatory with steady gait for discharge to home. Patient in stable condition, ID band removed. IV catheter removed, intact and dressing applied, no active bleeding. PT TO CONTINUE HOME MEDS. Patient educated on pain management. All belongings sent with patient.
--- NOTE | 2017-03-29 13:51 | NUR ---
Discharge Follow Up Phone Call [facility] phoned patient, , and spoke with patient's daughter, Leticia. Leticia stated that patient was at dialysis. Patient is doing well. She has a follow up appointment with her PCP on 04/01/17. She is checking her blood sugar as directed. Leticia stated that she thought patient had decreased her metoprolol as directed but will check with patient and discuss with PCP. They have no other questions or concerns.
== END 2017-03-27 13:35 | disposition home or self-care (01) | DRG 201 ==
LOC: SED 16:03 → STU 17:49
PROVIDERS: ADMIT Family Medicine; ATTEND Family Medicine
PROC: 5A1D00Z (ICD-10-PCS; principal; 2017-03-26)
DX: I48.91 Unspecified atrial fibrillation (principal); N17.0 Acute kidney failure with tubular necrosis; I50.43 Acute on chronic combined systolic (congestive) and diastolic (congestive) heart failure; E44.0 Moderate protein-calorie malnutrition; I13.2 Hypertensive heart and chronic kidney disease with heart failure and with stage 5 chronic kidney disease, or end stage renal disease; N18.6 End stage renal disease; E11.22 Type 2 diabetes mellitus with diabetic chronic kidney disease; H26.9 Unspecified cataract; E87.1 Hypo-osmolality and hyponatremia; E87.6 Hypokalemia; J44.9 Chronic obstructive pulmonary disease, unspecified
CPT/HCPCS: 36415; 71010; 80048; 80053; 80061; 81000-TC; 82150-TC; 82962; 83036; 83690-TC; 83735-TC; 83880; 84100-TC; 84436; 84439; 84443-TC; 84479; 84484; 85025; 85610-TC; 87081; 90935; 93005; 93306; 99285; J1644; J1815; J7030

== ENCOUNTER 2017-09-21 22:14 | Emergency (ER) | payer MEDICARE ==
[~2017-09-21] VITALS: Ht 152.4 cm; Wt 49.4 kg
[~2017-09-21 22:14] MED LIST changes: -ALBU8.5H8 INH; -AMOX-520 PO; -BECL8.7A5 INH; -FERR-57 PO; -FURO-150 PO; +GLIP-195 PO; -LOVA20TA2 PO; +METO25TA6 PO; -METO50TA3 PO; +NIFE-2 PO
[2017-09-21 22:20] VITALS: BP_SYST 156
[2017-09-21 23:43] LABS: BILIRUBIN,URINE 1+ (NEGATIVE); CLARITY/URINE CLEAR (CLEAR); COLOR,URINE YELLOW (YELLOW); GLUCOSE,URINE TRACE (NEGATIVE); KETONES,URINE NEGATIVE (NEGATIVE); LEUKOCYTE ESTERASE ,URINE NEGATIVE (NEGATIVE); NITRITE, URINE NEGATIVE (NEGATIVE); PROTEIN URINE 3+ (NEGATIVE)
[2017-09-21 23:44] LABS: BLOOD, URINE TRACE (NEGATIVE)
[2017-09-21] MEDS ORDERED: DIPHENHYDRAMINE INJ 50 MG/ML VIAL IVP ONE (23:45)
[2017-09-21] MEDS ORDERED: MORPHINE 4 MG/ML INJ. SYRINGE IVP ONE (23:45)
[2017-09-21 23:51] LABS: BACTERIA,URINE FEW /HPF (None Seen); RBC,URINE 0-3 /HPF (0-3)
[2017-09-22 00:09] LABS: BASOPHILS % (AUTO) 0.2 % (0.0-2.0); HEMOGLOBIN 11.1 g/dL (12.0-16.0); MEAN CORPUSCULAR HEMOGLOBIN 30 pg (27-31); MEAN CORPUSCULAR HGB CONC 34 % (32-36); MONOCYTES # (AUTO) 1.2 K/uL (0.0-1.0); RED CELL DISTRIBUTION WIDTH 13.3 % (9.0-15.0)
[2017-09-22 00:12] LABS: ANION GAP 6 (5-15); CALCIUM 8.7 mg/dL (8.4-11.0); CHLORIDE 94 mmol/L (98-107); CREATININE 3.48 mg/dL (0.55-1.30); EOSINOPHILS # (AUTO) 0.3 K/uL (0.0-0.4); GLUCOSE 107 mg/dL (70-99); HEMATOCRIT 32.4 % (36-48); LYMPHOCYTES # (AUTO) 0.7 K/uL (1.0-5.5); LYMPHOCYTES % (AUTO) 4.7 % (20.5-51.5); MEAN CORPUSCULAR VOLUME 88 fL (79.0-98.0); MONOCYTES % (AUTO) 8.4 % (1.7-9.3); NEUTROPHILS % (AUTO) 84.7 % (40.0-70.0); PLATELET COUNT (AUTO) 299 K/uL (130-430); RED BLOOD CELL COUNT(AUTO) 3.68 MIL/uL (4.2-6.2); SODIUM SERUM 131 mmol/L (136-145); UREA NITROGEN, BLOOD 20 mg/dL (8-21); WHITE BLOOD COUNT (AUTO) 14.2 K/uL (4.8-10.8)
[2017-09-22 00:16] LABS: POTASSIUM 2.7 mmol/L (3.5-5.1); PROTHROMBIN TIME 10.3 SECS (9.5-12.5)
[2017-09-22 00:18] LABS: ALANINE AMINOTRANSFERASE 12 U/L (12-78); ALBUMIN 2.7 g/dL (3.4-4.8); ASPARTATE AMINOTRANSFERASE 66 U/L (10-37); LIPASE 166 U/L (73-393)
[2017-09-22] MEDS ORDERED: METO-442 PO (00:47)
[2017-09-22] MEDS ORDERED: POTASSIUM CHLORIDE 20 MEQ TAB.PRT.SR PO ONE (01:00)
[2017-09-22] MEDS ORDERED: KCL 20 mEq in 100 mL (PREMIX) 100 ML IV ONE (01:00)
[2017-09-22 03:28] VITALS: BP_SYST 184
== END 2017-09-22 03:28 | disposition home or self-care (01) ==
LOC: SED 22:14
DX: R10.9 Unspecified abdominal pain (principal); M10.9 Gout, unspecified; C22.0 Liver cell carcinoma; J44.9 Chronic obstructive pulmonary disease, unspecified; I12.0 Hypertensive chronic kidney disease with stage 5 chronic kidney disease or end stage renal disease; E11.22 Type 2 diabetes mellitus with diabetic chronic kidney disease; N18.6 End stage renal disease; Z99.2 Dependence on renal dialysis; Z90.49 Acquired absence of other specified parts of digestive tract
CPT/HCPCS: 36415; 74176; 80053; 81000; 83690; 85025; 85610; 85730; 96365; 96366; 96375; 99285; J1200; J2270; J3480; J7040

== ENCOUNTER 2018-01-10 18:52 | Inpatient (IN) | payer MEDICARE ==
[~2018-01-10] VITALS: Ht 152.4 cm; Wt 48.1 kg
[~2018-01-10 18:52] MED LIST changes: -GLIP-195 PO; -MAGN400T10 PO; +METO-442 PO; -METO25TA6 PO
[2018-01-10 18:54] VITALS: BP_SYST 160
[2018-01-10] MEDS ORDERED: HYDR-4039 PO (19:26)
[2018-01-10] MEDS ORDERED: WARF4TAB68 PO (19:26)
[2018-01-10] MEDS ORDERED: MEGE40TA PO (19:26)
[2018-01-10] MEDS ORDERED: CAT.1 PO (19:26)
[2018-01-10] MEDS ORDERED: NACL 0.9% 1,000 ML IV ONE (19:30)
[2018-01-10 19:35] LABS: BASOPHILS # (AUTO) 0.1 K/uL (0.0-0.2); BASOPHILS % (AUTO) 1.2 % (0.0-2.0); EOSINOPHILS # (AUTO) 0.3 K/uL (0.0-0.4); EOSINOPHILS % (AUTO) 3.2 % (0.0-4.0); HEMATOCRIT 35.1 % (36-48); HEMOGLOBIN 11.7 g/dL (12.0-16.0); LYMPHOCYTES # (AUTO) 0.5 K/uL (1.0-5.5); LYMPHOCYTES % (AUTO) 5.7 % (20.5-51.5); MEAN CORPUSCULAR HEMOGLOBIN 28 pg (27-31); MEAN CORPUSCULAR HGB CONC 33 % (32-36); MEAN CORPUSCULAR VOLUME 84 fL (79.0-98.0); MONOCYTES # (AUTO) 0.7 K/uL (0.0-1.0); MONOCYTES % (AUTO) 8.6 % (1.7-9.3); NEUTROPHILS # (AUTO) 6.8 K/uL (1.8-7.7); NEUTROPHILS % (AUTO) 81.3 % (40.0-70.0); PLATELET COUNT (AUTO) 282 K/uL (130-430); RED BLOOD CELL COUNT(AUTO) 4.18 MIL/uL (4.2-6.2); RED CELL DISTRIBUTION WIDTH 15.8 % (9.0-15.0); WHITE BLOOD COUNT (AUTO) 8.4 K/uL (4.8-10.8)
[2018-01-10 19:53] LABS: ANION GAP 11 (5-15); CALCIUM 8.4 mg/dL (8.4-11.0); CHLORIDE 102 mmol/L (98-107); CREATININE 3.37 mg/dL (0.55-1.30); GLUCOSE 144 mg/dL (70-99); POTASSIUM 3.1 mmol/L (3.5-5.1); SODIUM SERUM 140 mmol/L (136-145); UREA NITROGEN, BLOOD 26 mg/dL (8-21)
[2018-01-10 19:58] LABS: ALANINE AMINOTRANSFERASE 26 U/L (12-78); ALBUMIN 2.3 g/dL (3.4-4.8); ASPARTATE AMINOTRANSFERASE 164 U/L (10-37); TOTAL BILIRUBIN 0.5 mg/dL (0.0-1.0)
[2018-01-10 20:31] LABS: INR > 9.0 (0.8-1.2); PROTHROMBIN TIME > 90.0 SECS (9.5-12.5)
[2018-01-10 22:50] VITALS: BP_SYST 199
[2018-01-10] MEDS ORDERED: MILK OF MAGNESIA 30 ML UDC PO PRN (23:45)
[2018-01-10] MEDS ORDERED: cloNIDine HCL 0.1 MG TABLET PO PRN (23:45)
[2018-01-10] MEDS ORDERED: cloNIDine HCL 0.1 MG TABLET PO ONE (23:45)
[2018-01-11] VITALS (8 sets, daily range): BP systolic 129–177
[2018-01-11] MEDS ORDERED: PHYTONADIONE 10 MG/ML AMP SUBCUT ONE
[2018-01-11] MEDS ORDERED: cloNIDine HCL 0.1 MG TABLET PO PRN (00:15)
[2018-01-11] MEDS: hydrALAZINE HCL 25 MG TABLET PO SCH ×5 (00:18→21:51)
[2018-01-11] MEDS: METOPROLOL TARTRATE 50 MG TABLET PO SCH ×3 (00:19→21:52)
[2018-01-11] MEDS: INSULIN REGULAR, HUMAN 100 UNITS/ML, 10 ML VIAL (novoLIN R) SUBCUT PRN (06:08)
[2018-01-11 07:25] LABS: BASOPHILS % (AUTO) 0.4 % (0.0-2.0); EOSINOPHILS # (AUTO) 0.5 K/uL (0.0-0.4); EOSINOPHILS % (AUTO) 6.2 % (0.0-4.0); HEMATOCRIT 32.9 % (36-48); LYMPHOCYTES # (AUTO) 0.7 K/uL (1.0-5.5); LYMPHOCYTES % (AUTO) 8.3 % (20.5-51.5); MEAN CORPUSCULAR HEMOGLOBIN 28 pg (27-31); MEAN CORPUSCULAR HGB CONC 33 % (32-36); MEAN CORPUSCULAR VOLUME 85 fL (79.0-98.0); MONOCYTES # (AUTO) 0.6 K/uL (0.0-1.0); MONOCYTES % (AUTO) 7.5 % (1.7-9.3); NEUTROPHILS # (AUTO) 6.7 K/uL (1.8-7.7); NEUTROPHILS % (AUTO) 77.6 % (40.0-70.0); PLATELET COUNT (AUTO) 234 K/uL (130-430); RED BLOOD CELL COUNT(AUTO) 3.87 MIL/uL (4.2-6.2); RED CELL DISTRIBUTION WIDTH 16.3 % (9.0-15.0); WHITE BLOOD COUNT (AUTO) 8.5 K/uL (4.8-10.8)
[2018-01-11 07:45] LABS: ANION GAP 13 (5-15); CALCIUM 8.1 mg/dL (8.4-11.0); CHLORIDE 104 mmol/L (98-107); CREATININE 4.02 mg/dL (0.55-1.30); GLUCOSE 95 mg/dL (70-99); POTASSIUM 3.3 mmol/L (3.5-5.1); SODIUM SERUM 142 mmol/L (136-145); UREA NITROGEN, BLOOD 34 mg/dL (8-21)
[2018-01-11] MEDS: MEGESTROL ACETATE 40 MG TABLET PO SCH (08:30)
[2018-01-11] MEDS: NIFEDIPINE 30 MG TAB.ER.24 PO SCH ×2 (08:31→21:51)
[2018-01-11 08:34] LABS: INR 5.9 (0.8-1.2)
[2018-01-12 00:33] VITALS: BP_SYST 122
[2018-01-12] MEDS: MEGESTROL ACETATE 40 MG TABLET PO SCH (08:57)
[2018-01-12] MEDS: hydrALAZINE HCL 25 MG TABLET PO SCH ×4 (08:57→21:57)
[2018-01-12] MEDS: METOPROLOL TARTRATE 50 MG TABLET PO SCH ×2 (08:57→21:57)
[2018-01-12] MEDS: NIFEDIPINE 30 MG TAB.ER.24 PO SCH ×2 (08:57→21:58)
[2018-01-12 09:00] VITALS: BP_SYST 134
[2018-01-12 12:05] VITALS: BP_SYST 133
[2018-01-12 16:05] VITALS: BP_SYST 124
[2018-01-12] MEDS ORDERED: PHYTONADIONE 10 MG/ML AMP SUBCUT ONE (16:30)
[2018-01-12 19:20] VITALS: BP_SYST 108
[2018-01-12 21:50] VITALS: BP_SYST 139
[2018-01-13] VITALS: BP_SYST 120
[2018-01-13 06:20] VITALS: BP_SYST 122
[2018-01-13 06:54] LABS: BASOPHILS % (AUTO) 0.3 % (0.0-2.0); EOSINOPHILS # (AUTO) 0.3 K/uL (0.0-0.4); EOSINOPHILS % (AUTO) 2.4 % (0.0-4.0); HEMATOCRIT 31.9 % (36-48); HEMOGLOBIN 10.7 g/dL (12.0-16.0); LYMPHOCYTES # (AUTO) 0.8 K/uL (1.0-5.5); LYMPHOCYTES % (AUTO) 5.4 % (20.5-51.5); MEAN CORPUSCULAR HEMOGLOBIN 29 pg (27-31); MEAN CORPUSCULAR HGB CONC 34 % (32-36); MEAN CORPUSCULAR VOLUME 86 fL (79.0-98.0); MONOCYTES # (AUTO) 0.8 K/uL (0.0-1.0); MONOCYTES % (AUTO) 5.8 % (1.7-9.3); NEUTROPHILS # (AUTO) 12.3 K/uL (1.8-7.7); NEUTROPHILS % (AUTO) 86.1 % (40.0-70.0); PLATELET COUNT (AUTO) 305 K/uL (130-430); RED BLOOD CELL COUNT(AUTO) 3.73 MIL/uL (4.2-6.2); RED CELL DISTRIBUTION WIDTH 16.5 % (9.0-15.0); WHITE BLOOD COUNT (AUTO) 14.2 K/uL (4.8-10.8)
[2018-01-13 07:16] LABS: INR 1.1 (0.8-1.2); PROTHROMBIN TIME 11.5 SECS (9.5-12.5)
[2018-01-13 07:24] LABS: ALANINE AMINOTRANSFERASE 13 U/L (12-78); ALBUMIN 2.2 g/dL (3.4-4.8); ANION GAP 18 (5-15); ASPARTATE AMINOTRANSFERASE 145 U/L (10-37); CALCIUM 8.3 mg/dL (8.4-11.0); CHLORIDE 95 mmol/L (98-107); CREATININE 6.23 mg/dL (0.55-1.30); GLUCOSE 149 mg/dL (70-99); POTASSIUM 4.2 mmol/L (3.5-5.1); SODIUM SERUM 133 mmol/L (136-145); TOTAL BILIRUBIN 0.6 mg/dL (0.0-1.0); UREA NITROGEN, BLOOD 83 mg/dL (8-21)
[2018-01-13 08:00] VITALS: BP_SYST 131
[2018-01-13] MEDS: NIFEDIPINE 30 MG TAB.ER.24 PO SCH ×2 (09:00→21:12)
[2018-01-13] MEDS: METOPROLOL TARTRATE 50 MG TABLET PO SCH ×2 (09:00→21:12)
[2018-01-13] MEDS: hydrALAZINE HCL 25 MG TABLET PO SCH ×4 (09:00→21:11)
[2018-01-13] MEDS: MEGESTROL ACETATE 40 MG TABLET PO SCH (09:11)
[2018-01-13] MEDS ORDERED: MILK OF MAGNESIA 30 ML UDC PO PRN (11:00)
[2018-01-13 12:00] VITALS: BP_SYST 118
[2018-01-13] MEDS ORDERED: EPOETIN ALFA 2,000 UNITS/ML VIAL SUBCUT ONE (13:00)
[2018-01-13 16:26] VITALS: BP_SYST 122
[2018-01-13] MEDS: WARFARIN SODIUM 2 MG TABLET PO SCH (18:20)
[2018-01-13] MEDS: INSULIN REGULAR, HUMAN 100 UNITS/ML, 10 ML VIAL (novoLIN R) SUBCUT PRN (18:21)
[2018-01-13 20:00] VITALS: BP_SYST 138
[2018-01-14 00:05] VITALS: BP_SYST 124
[2018-01-14] MEDS: METOPROLOL TARTRATE 50 MG TABLET PO SCH (08:35)
[2018-01-14] MEDS: hydrALAZINE HCL 25 MG TABLET PO SCH ×2 (08:36→14:52)
[2018-01-14] MEDS: NIFEDIPINE 30 MG TAB.ER.24 PO SCH (08:36)
[2018-01-14] MEDS: MEGESTROL ACETATE 40 MG TABLET PO SCH (08:41)
[2018-01-14 08:44] VITALS: BP_SYST 119
[2018-01-14 09:40] LABS: INR 1.1 (0.8-1.2); PROTHROMBIN TIME 11.3 SECS (9.5-12.5)
[2018-01-14 12:27] VITALS: BP_SYST 127
[2018-01-14 16:00] VITALS: BP_SYST 131
[2018-01-14] MEDS: WARFARIN SODIUM 2 MG TABLET PO SCH (17:56)
[2018-01-14] MEDS ORDERED: hydrALAZINE HCL 25 MG TABLET PO SCH (18:00)
[2018-01-14 18:57] VITALS: BP_SYST 131
== END 2018-01-14 19:06 | disposition home or self-care (01) | DRG 812 ==
LOC: SED 18:52 → SMU 22:22
PROVIDERS: ADMIT Family Medicine; ATTEND Family Medicine
PROC: 5A1D70Z Performance of Urinary Filtration, Intermittent, Less than 6 Hours Per Day (ICD-10-PCS; principal; 2018-01-13)
DX: T45.511A Poisoning by anticoagulants, accidental (unintentional), initial encounter (principal); E43 Unspecified severe protein-calorie malnutrition; E11.22 Type 2 diabetes mellitus with diabetic chronic kidney disease; I12.0 Hypertensive chronic kidney disease with stage 5 chronic kidney disease or end stage renal disease; I48.0 Paroxysmal atrial fibrillation; N18.6 End stage renal disease; F03.90 Unspecified dementia, unspecified severity, without behavioral disturbance, psychotic disturbance, mood disturbance, and anxiety; J44.9 Chronic obstructive pulmonary disease, unspecified; D64.9 Anemia, unspecified; E78.00 Pure hypercholesterolemia, unspecified; I49.9 Cardiac arrhythmia, unspecified; Z79.01 Long term (current) use of anticoagulants; Z79.899 Other long term (current) drug therapy; Z85.89 Personal history of malignant neoplasm of other organs and systems; Z90.49 Acquired absence of other specified parts of digestive tract; Y92.128 Other place in nursing home as the place of occurrence of the external cause; Z99.2 Dependence on renal dialysis; Z68.20 Body mass index [BMI] 20.0-20.9, adult
CPT/HCPCS: 36415; 80048; 80053; 82962; 85025; 85610-TC; 85730-TC; 87081; 90935; 93005; 96360; 96361; 99285; J0885; J1815; J3430; J7030

== ENCOUNTER 2018-03-21 10:40 | Emergency (ER) | payer MEDICARE ==
[~2018-03-21] VITALS: Ht 152.4 cm; Wt 59.0 kg
[2018-03-21 10:40] VITALS: BP_SYST 144
[~2018-03-21 10:40] MED LIST changes: +CAT.1 PO; -FAMO40TA7 PO; +MEGE40TA PO
[2018-03-21] MEDS ORDERED: AMLO5TAB4 PO (10:53)
[2018-03-21] MEDS ORDERED: GLIP-212 PO (10:53)
[2018-03-21] MEDS ORDERED: LOVA20TA2 PO (10:53)
[2018-03-21 11:28] LABS: BASOPHILS # (AUTO) 0.1 K/uL (0.0-0.2); BASOPHILS % (AUTO) 0.5 % (0.0-2.0); EOSINOPHILS # (AUTO) 0.7 K/uL (0.0-0.4); EOSINOPHILS % (AUTO) 5.5 % (0.0-4.0); HEMATOCRIT 37.5 % (36-48); HEMOGLOBIN 12.1 g/dL (12.0-16.0); LYMPHOCYTES # (AUTO) 0.8 K/uL (1.0-5.5); LYMPHOCYTES % (AUTO) 5.9 % (20.5-51.5); MEAN CORPUSCULAR HEMOGLOBIN 29 pg (27-31); MEAN CORPUSCULAR HGB CONC 32 % (32-36); MEAN CORPUSCULAR VOLUME 89 fL (79.0-98.0); MONOCYTES # (AUTO) 0.5 K/uL (0.0-1.0); MONOCYTES % (AUTO) 4.1 % (1.7-9.3); NEUTROPHILS # (AUTO) 11.1 K/uL (1.8-7.7); PLATELET COUNT (AUTO) 410 K/uL (130-430); RED CELL DISTRIBUTION WIDTH 15.9 % (9.0-15.0); WHITE BLOOD COUNT (AUTO) 13.2 K/uL (4.8-10.8)
[2018-03-21 11:33] LABS: ANION GAP 20 (5-15); CALCIUM 8.9 mg/dL (8.4-11.0); CHLORIDE 96 mmol/L (98-107); GLUCOSE 143 mg/dL (70-99); POTASSIUM 3.4 mmol/L (3.5-5.1); SODIUM SERUM 138 mmol/L (136-145); UREA NITROGEN, BLOOD 72 mg/dL (8-21)
[2018-03-21 11:36] LABS: CREATININE 7.63 mg/dL (0.55-1.30)
[2018-03-21 11:44] LABS: ALANINE AMINOTRANSFERASE 10 U/L (12-78); ALBUMIN 2.7 g/dL (3.4-4.8); ASPARTATE AMINOTRANSFERASE 59 U/L (10-37); TOTAL BILIRUBIN 0.4 mg/dL (0.0-1.0)
[2018-03-21] MEDS ORDERED: LIDOCAINE 1% 10 MG/ML, 20 ML MDV INJ ONE (12:45)
[2018-03-21] MEDS ORDERED: ONDANSETRON HCL 4 MG/2 ML VIAL IVP ONE (13:15)
[2018-03-21] MEDS ORDERED: fentaNYL CITRATE/PF 100 MCG/2 ML AMP IVP ONE (13:15)
[2018-03-21 14:15] VITALS: BP_SYST 147
== END 2018-03-21 14:15 | disposition home or self-care (01) ==
LOC: SED 10:40
DX: S52.502A Unspecified fracture of the lower end of left radius, initial encounter for closed fracture (principal); S81.012A Laceration without foreign body, left knee, initial encounter; S00.81XA Abrasion of other part of head, initial encounter; R42 Dizziness and giddiness; J44.9 Chronic obstructive pulmonary disease, unspecified; E11.9 Type 2 diabetes mellitus without complications; E78.00 Pure hypercholesterolemia, unspecified; I10 Essential (primary) hypertension; Z99.2 Dependence on renal dialysis; Z90.49 Acquired absence of other specified parts of digestive tract; Z79.899 Other long term (current) drug therapy; W18.30XA Fall on same level, unspecified, initial encounter; Y93.89 Activity, other specified; Y92.89 Other specified places as the place of occurrence of the external cause; Y99.8 Other external cause status
CPT/HCPCS: 12004; 29125; 36415; 70450; 70486; 71045; 73070; 73110; 73564; 80053; 82550; 84484; 85025; 93005; 96374; 96375; 99285; J2405; J3010; J2001

== ENCOUNTER 2018-08-24 15:10 | Inpatient (IN) | payer BC, MEDICARE ==
[~2018-08-24] VITALS: Ht 152.4 cm; Wt 60.0 kg
[~2018-08-24 15:10] MED LIST changes: +AMLO5TAB4 PO; +GLIP5TAB26 PO; +LOVA20TA2 PO
[2018-08-24 15:25] VITALS: BP_SYST 146
[2018-08-24 16:29] LABS: HEMATOCRIT 31.7 % (36-48); HEMOGLOBIN 10.4 g/dL (12.0-16.0); MEAN CORPUSCULAR HEMOGLOBIN 31 pg (27-31); MEAN CORPUSCULAR HGB CONC 33 % (32-36); MEAN CORPUSCULAR VOLUME 93 fL (79.0-98.0); PLATELET COUNT (AUTO) 332 K/uL (130-430); RED BLOOD CELL COUNT(AUTO) 3.42 MIL/uL (4.2-6.2); RED CELL DISTRIBUTION WIDTH 17.4 % (9.0-15.0)
[2018-08-24 16:30] LABS: BASOPHILS % (AUTO) 0.4 % (0.0-2.0); EOSINOPHILS # (AUTO) 0.2 K/uL (0.0-0.4); EOSINOPHILS % (AUTO) 1.6 % (0.0-4.0); LYMPHOCYTES # (AUTO) 0.4 K/uL (1.0-5.5); LYMPHOCYTES % (AUTO) 3.5 % (20.5-51.5); MONOCYTES # (AUTO) 0.8 K/uL (0.0-1.0); MONOCYTES % (AUTO) 6.9 % (1.7-9.3); NEUTROPHILS # (AUTO) 9.6 K/uL (1.8-7.7); NEUTROPHILS % (AUTO) 87.6 % (40.0-70.0)
[2018-08-24 16:35] LABS: ANION GAP 6 (5-15); CALCIUM 9.2 mg/dL (8.4-11.0); CHLORIDE 103 mmol/L (98-107); CREATININE 2.64 mg/dL (0.55-1.30); GLUCOSE 117 mg/dL (70-99); SODIUM SERUM 139 mmol/L (136-145); UREA NITROGEN, BLOOD 23 mg/dL (8-21)
[2018-08-24 16:38] LABS: POTASSIUM 4.3 mmol/L (3.5-5.1)
[2018-08-24 16:41] LABS: ALANINE AMINOTRANSFERASE 26 U/L (12-78); ALBUMIN 2.2 g/dL (3.4-4.8); ASPARTATE AMINOTRANSFERASE 171 U/L (10-37); TOTAL BILIRUBIN 0.9 mg/dL (0.0-1.0)
[2018-08-24 16:44] LABS: INR 1.5 (0.8-1.2); PROTHROMBIN TIME 15.2 SECS (9.5-12.5)
[2018-08-24] MEDS ORDERED: WARF1TAB2 PO (18:37)
[2018-08-24 19:29] VITALS: BP_SYST 120
[2018-08-24 20:00] VITALS: BP_SYST 120
[2018-08-24] MEDS ORDERED: ACETAMINOPHEN 325 MG TABLET PO PRN (21:45)
[2018-08-24 23:14] VITALS: BP_SYST 122
[2018-08-25 08:23] VITALS: BP_SYST 124
[2018-08-25] MEDS ORDERED: LOVASTATIN 20 MG TABLET PO SCH (09:45)
[2018-08-25] MEDS ORDERED: amLODIPine BESYLATE 5 MG TABLET PO SCH (09:45)
[2018-08-25] MEDS ORDERED: D5W 1,000 ML IV PRN (11:45)
[2018-08-25] MEDS ORDERED: LORazepam 2 MG/ML VIAL IVP PRN (11:45)
[2018-08-25] MEDS ORDERED: GLUCOSE 15 GM GEL (in 37.5 GM TUBE) PO PRN (11:45)
[2018-08-25] MEDS ORDERED: HYDROcodone/ACETAMIN 5-325 MG TAB (NORCO/ VICODIN) PO PRN (11:45)
[2018-08-25] MEDS ORDERED: cloNIDine HCL 0.1 MG TABLET PO ONE (12:00)
[2018-08-25] MEDS ORDERED: MEGESTROL ACETATE 40 MG TABLET PO ONE (12:00)
[2018-08-25] MEDS ORDERED: METOPROLOL TARTRATE 50 MG TABLET PO ONE (12:00)
[2018-08-25 12:15] VITALS: BP_SYST 124
[2018-08-25] MEDS: hydrALAZINE HCL 25 MG TABLET PO SCH ×2 (13:24→17:13)
[2018-08-25] MEDS: NORMAL SALINE 5 ML DISP.SYRIN IVF SCH ×2 (13:29→22:00)
[2018-08-25 16:20] VITALS: BP_SYST 110
[2018-08-25] MEDS: SIMVASTATIN 10 MG TABLET PO SCH (17:13)
[2018-08-25 20:00] VITALS: BP_SYST 132
[2018-08-25] MEDS: METOPROLOL TARTRATE 50 MG TABLET PO SCH ×2 (21:42→21:50)
[2018-08-25] MEDS: MEGESTROL ACETATE 40 MG TABLET PO SCH ×2 (21:42→21:51)
[2018-08-26] MEDS: NORMAL SALINE 5 ML DISP.SYRIN IVF SCH ×3 (06:00→21:08)
[2018-08-26] MEDS: hydrALAZINE HCL 25 MG TABLET PO SCH ×5 (06:07→23:54)
[2018-08-26] MEDS: INSULIN REGULAR, HUMAN 100 UNITS/ML, 10 ML VIAL (novoLIN R) SUBCUT PRN ×2 (06:08→21:07)
[2018-08-26 06:09] LABS: WHITE BLOOD COUNT (AUTO) 11.1 K/uL (4.8-10.8)
[2018-08-26 06:13] LABS: HEMATOCRIT 28.9 % (36-48); HEMOGLOBIN 9.7 g/dL (12.0-16.0); MEAN CORPUSCULAR HEMOGLOBIN 31 pg (27-31); MEAN CORPUSCULAR HGB CONC 33 % (32-36); MEAN CORPUSCULAR VOLUME 93 fL (79.0-98.0); RED CELL DISTRIBUTION WIDTH 17.6 % (9.0-15.0)
[2018-08-26 06:14] LABS: BASOPHILS # (AUTO) 0.1 K/uL (0.0-0.2); BASOPHILS % (AUTO) 1.1 % (0.0-2.0); EOSINOPHILS # (AUTO) 0.4 K/uL (0.0-0.4); EOSINOPHILS % (AUTO) 3.2 % (0.0-4.0); LYMPHOCYTES % (AUTO) 9.2 % (20.5-51.5); MONOCYTES % (AUTO) 9.3 % (1.7-9.3); NEUTROPHILS # (AUTO) 8.6 K/uL (1.8-7.7); NEUTROPHILS % (AUTO) 77.2 % (40.0-70.0); PLATELET COUNT (AUTO) 353 K/uL (130-430)
[2018-08-26 06:21] LABS: ANION GAP 10 (5-15); CALCIUM 9.6 mg/dL (8.4-11.0); CHLORIDE 102 mmol/L (98-107); CREATININE 5.27 mg/dL (0.55-1.30); GLUCOSE 83 mg/dL (70-99); PHOSPHORUS 3.7 mg/dL (2.7-4.5); POTASSIUM 4.1 mmol/L (3.5-5.1); SODIUM SERUM 139 mmol/L (136-145); UREA NITROGEN, BLOOD 46 mg/dL (8-21)
[2018-08-26 08:05] VITALS: BP_SYST 140
[2018-08-26 08:27] LABS: CHOLESTEROL 243 mg/dL (<200); HDL CHOLESTEROL 17 mg/dL (>55); LDL CHOLESTEROL 193 mg/dL (<100); TRIGLYCERIDES 109 mg/dL (30-150)
[2018-08-26] MEDS: cloNIDine HCL 0.1 MG TABLET PO SCH (09:00)
[2018-08-26] MEDS: NIFEDIPINE 30 MG TAB.ER.24 PO SCH ×2 (09:00→21:07)
[2018-08-26 11:22] VITALS: BP_SYST 108
[2018-08-26] MEDS: cefTRIAXone 1 GM in D5W 50 ML IV SCH (15:17)
[2018-08-26 15:38] VITALS: BP_SYST 101
[2018-08-26] MEDS: AZITHROMYCIN 500 MG in NS 250 ML IV SCH (16:10)
[2018-08-26] MEDS: SIMVASTATIN 10 MG TABLET PO SCH (18:30)
[2018-08-26] MEDS: WARFARIN SODIUM 1 MG TABLET PO SCH (18:33)
[2018-08-26 20:00] VITALS: BP_SYST 125
[2018-08-26] MEDS ORDERED: FAMOTIDINE 20 MG TABLET PO ONE (20:40)
[2018-08-26] MEDS ORDERED: SIMETHICONE 80 MG TAB.CHEW PO ONE (20:40)
[2018-08-26] MEDS: METOPROLOL TARTRATE 50 MG TABLET PO SCH (21:07)
[2018-08-26] MEDS: MEGESTROL ACETATE 40 MG TABLET PO SCH (21:07)
[2018-08-27] VITALS (7 sets, daily range): BP systolic 91–133
[2018-08-27] MEDS: hydrALAZINE HCL 25 MG TABLET PO SCH ×4 (06:38→23:56)
[2018-08-27] MEDS: NORMAL SALINE 5 ML DISP.SYRIN IVF SCH ×3 (06:39→21:28)
[2018-08-27] MEDS: cefTRIAXone 1 GM in D5W 50 ML IV SCH (09:03)
[2018-08-27] MEDS: HYDROcodone/ACETAMIN 10-325 MG TAB PO PRN ×2 (09:03→18:06)
[2018-08-27] MEDS: NIFEDIPINE 30 MG TAB.ER.24 PO SCH ×2 (09:04→21:26)
[2018-08-27] MEDS: cloNIDine HCL 0.1 MG TABLET PO SCH (09:04)
[2018-08-27] MEDS: FAMOTIDINE 20 MG TABLET PO SCH (09:04)
[2018-08-27] MEDS: SIMETHICONE 80 MG TAB.CHEW PO SCH ×3 (09:04→21:25)
[2018-08-27] MEDS: METOPROLOL TARTRATE 50 MG TABLET PO SCH ×2 (09:05→21:26)
[2018-08-27] MEDS: ONDANSETRON HCL 4 MG/2 ML VIAL IVP PRN (09:13)
[2018-08-27] MEDS: MEGESTROL ACETATE 40 MG TABLET PO SCH ×2 (09:19→21:26)
[2018-08-27 10:06] LABS: ANION GAP 10 (5-15); C-REACTIVE PROTEIN QUANT 8.7 mg/dL (0-0.5); CHLORIDE 101 mmol/L (98-107); CREATININE 3.45 mg/dL (0.55-1.30); GLUCOSE 99 mg/dL (70-99); PHOSPHORUS 2.7 mg/dL (2.7-4.5); POTASSIUM 3.9 mmol/L (3.5-5.1); SODIUM SERUM 135 mmol/L (136-145); UREA NITROGEN, BLOOD 20 mg/dL (8-21)
[2018-08-27 10:10] LABS: INR 1.4 (0.8-1.2); PROTHROMBIN TIME 14.5 SECS (9.5-12.5)
[2018-08-27 10:16] LABS: EOSINOPHILS # (AUTO) 0.1 K/uL (0.0-0.4); EOSINOPHILS % (AUTO) 1.4 % (0.0-4.0); HEMATOCRIT 34.6 % (36-48); HEMOGLOBIN 11.3 g/dL (12.0-16.0); LYMPHOCYTES # (AUTO) 0.6 K/uL (1.0-5.5); LYMPHOCYTES % (AUTO) 6.2 % (20.5-51.5); MEAN CORPUSCULAR HEMOGLOBIN 31 pg (27-31); MEAN CORPUSCULAR HGB CONC 22 % (32-36); MEAN CORPUSCULAR VOLUME 94 fL (79.0-98.0); MONOCYTES # (AUTO) 0.5 K/uL (0.0-1.0); MONOCYTES % (AUTO) 5.4 % (1.7-9.3); PLATELET COUNT (AUTO) 388 K/uL (130-430); RED CELL DISTRIBUTION WIDTH 17.8 % (9.0-15.0); WHITE BLOOD COUNT (AUTO) 9.3 K/uL (4.8-10.8)
[2018-08-27 10:17] LABS: BASOPHILS # (AUTO) 0.1 K/uL (0.0-0.2)
[2018-08-27] MEDS: AZITHROMYCIN 500 MG in NS 250 ML IV SCH (10:22)
[2018-08-27 10:58] LABS: ERYTHROCYTE SEDIMENTATION RATE 87 MM/HR (0-20)
[2018-08-27] MEDS: ACETAMINOPHEN 325 MG TABLET PO PRN (15:15)
[2018-08-27] MEDS: SIMVASTATIN 10 MG TABLET PO SCH (17:49)
[2018-08-27] MEDS: WARFARIN SODIUM 1 MG TABLET PO SCH (17:52)
[2018-08-27] MEDS: DOCUSATE SODIUM 100 MG CAPSULE PO PRN (18:19)
[2018-08-28] MEDS: hydrALAZINE HCL 25 MG TABLET PO SCH ×2 (05:54→18:00)
[2018-08-28] MEDS: NORMAL SALINE 5 ML DISP.SYRIN IVF SCH ×3 (05:54→22:21)
[2018-08-28] MEDS: INSULIN REGULAR, HUMAN 100 UNITS/ML, 10 ML VIAL (novoLIN R) SUBCUT PRN (05:59)
[2018-08-28 06:57] LABS: INR 2.2 (0.8-1.2); PROTHROMBIN TIME 21.5 SECS (9.5-12.5)
[2018-08-28 07:02] LABS: WHITE BLOOD COUNT (AUTO) 13.5 K/uL (4.8-10.8)
[2018-08-28 07:03] LABS: HEMATOCRIT 33.4 % (36-48); HEMOGLOBIN 10.9 g/dL (12.0-16.0); LYMPHOCYTES % (AUTO) 3.5 % (20.5-51.5); MEAN CORPUSCULAR HEMOGLOBIN 30 pg (27-31); MEAN CORPUSCULAR HGB CONC 33 % (32-36); MEAN CORPUSCULAR VOLUME 93 fL (79.0-98.0); MONOCYTES % (AUTO) 4.7 % (1.7-9.3); NEUTROPHILS % (AUTO) 88.9 % (40.0-70.0); PLATELET COUNT (AUTO) 368 K/uL (130-430); RED BLOOD CELL COUNT(AUTO) 3.59 MIL/uL (4.2-6.2); RED CELL DISTRIBUTION WIDTH 17.9 % (9.0-15.0)
[2018-08-28 07:04] LABS: BASOPHILS # (AUTO) 0.2 K/uL (0.0-0.2); BASOPHILS % (AUTO) 1.1 % (0.0-2.0); EOSINOPHILS # (AUTO) 0.2 K/uL (0.0-0.4); EOSINOPHILS % (AUTO) 1.8 % (0.0-4.0); LYMPHOCYTES # (AUTO) 0.5 K/uL (1.0-5.5); MONOCYTES # (AUTO) 0.6 K/uL (0.0-1.0)
[2018-08-28 07:11] LABS: ALANINE AMINOTRANSFERASE 23 U/L (12-78); ALBUMIN 2.5 g/dL (3.4-4.8); ANION GAP 12 (5-15); ASPARTATE AMINOTRANSFERASE 149 U/L (10-37); C-REACTIVE PROTEIN QUANT 7.6 mg/dL (0-0.5); CALCIUM 9.6 mg/dL (8.4-11.0); CHLORIDE 101 mmol/L (98-107); CREATININE 4.67 mg/dL (0.55-1.30); GLUCOSE 113 mg/dL (70-99); PHOSPHORUS 3.6 mg/dL (2.7-4.5); POTASSIUM 4.6 mmol/L (3.5-5.1); SODIUM SERUM 137 mmol/L (136-145); TOTAL BILIRUBIN 0.8 mg/dL (0.0-1.0); UREA NITROGEN, BLOOD 31 mg/dL (8-21)
[2018-08-28 08:41] LABS: ERYTHROCYTE SEDIMENTATION RATE 79 MM/HR (0-20)
[2018-08-28 09:29] VITALS: BP_SYST 140
[2018-08-28] MEDS: cefTRIAXone 1 GM in D5W 50 ML IV SCH (09:48)
[2018-08-28] MEDS: HYDROcodone/ACETAMIN 10-325 MG TAB PO PRN (10:07)
[2018-08-28] MEDS: FAMOTIDINE 20 MG TABLET PO SCH (10:08)
[2018-08-28] MEDS: NIFEDIPINE 30 MG TAB.ER.24 PO SCH ×2 (10:08→20:10)
[2018-08-28] MEDS: SIMETHICONE 80 MG TAB.CHEW PO SCH ×3 (10:09→20:09)
[2018-08-28] MEDS: METOPROLOL TARTRATE 50 MG TABLET PO SCH ×2 (10:09→20:10)
[2018-08-28] MEDS: MEGESTROL ACETATE 40 MG TABLET PO SCH ×2 (10:09→20:10)
[2018-08-28] MEDS: cloNIDine HCL 0.1 MG TABLET PO SCH (10:10)
[2018-08-28] MEDS: AZITHROMYCIN 500 MG in NS 250 ML IV SCH (10:11)
[2018-08-28] MEDS: glipiZIDE XL 2.5 MG/TAB (GLUCOTROL XL) PO SCH (10:11)
[2018-08-28 12:21] VITALS: BP_SYST 120
[2018-08-28] MEDS ORDERED: D5NS 1,000 ML IV SCH (13:45)
[2018-08-28 16:00] VITALS: BP_SYST 113
[2018-08-28] MEDS: SIMVASTATIN 10 MG TABLET PO SCH (18:31)
[2018-08-28] MEDS: WARFARIN SODIUM 1 MG TABLET PO SCH (18:34)
[2018-08-28 20:00] VITALS: BP_SYST 122
[2018-08-29] VITALS: BP_SYST 101
[2018-08-29] MEDS: NORMAL SALINE 5 ML DISP.SYRIN IVF SCH ×3 (04:59→22:12)
[2018-08-29] MEDS: hydrALAZINE HCL 25 MG TABLET PO SCH ×5 (06:06→23:42)
[2018-08-29] MEDS: DEXTROSE 50% JECT 50 ML DISP.SYRIN IVP PRN (06:22)
[2018-08-29 06:52] LABS: WHITE BLOOD COUNT (AUTO) 10.6 K/uL (4.8-10.8)
[2018-08-29 06:53] LABS: HEMATOCRIT 29.7 % (36-48); HEMOGLOBIN 9.8 g/dL (12.0-16.0); LYMPHOCYTES % (AUTO) 6.9 % (20.5-51.5); MEAN CORPUSCULAR HEMOGLOBIN 31 pg (27-31); MEAN CORPUSCULAR HGB CONC 33 % (32-36); MEAN CORPUSCULAR VOLUME 94 fL (79.0-98.0); NEUTROPHILS % (AUTO) 84.1 % (40.0-70.0); PLATELET COUNT (AUTO) 302 K/uL (130-430); RED BLOOD CELL COUNT(AUTO) 3.18 MIL/uL (4.2-6.2); RED CELL DISTRIBUTION WIDTH 17.9 % (9.0-15.0)
[2018-08-29 06:54] LABS: BASOPHILS # (AUTO) 0.1 K/uL (0.0-0.2); BASOPHILS % (AUTO) 0.7 % (0.0-2.0); EOSINOPHILS # (AUTO) 0.3 K/uL (0.0-0.4); EOSINOPHILS % (AUTO) 3.1 % (0.0-4.0); LYMPHOCYTES # (AUTO) 0.7 K/uL (1.0-5.5); MONOCYTES # (AUTO) 0.6 K/uL (0.0-1.0); MONOCYTES % (AUTO) 5.2 % (1.7-9.3); NEUTROPHILS # (AUTO) 8.9 K/uL (1.8-7.7)
[2018-08-29 07:07] LABS: ANION GAP 9 (5-15); C-REACTIVE PROTEIN QUANT 7.4 mg/dL (0-0.5); CALCIUM 7.1 mg/dL (8.4-11.0); CHLORIDE 113 mmol/L (98-107); CREATININE 5.13 mg/dL (0.55-1.30); PHOSPHORUS 3.5 mg/dL (2.7-4.5); POTASSIUM 3.5 mmol/L (3.5-5.1); SODIUM SERUM 142 mmol/L (136-145); UREA NITROGEN, BLOOD 36 mg/dL (8-21)
[2018-08-29 07:12] LABS: INR 3.5 (0.8-1.2)
[2018-08-29 07:44] LABS: PROTHROMBIN TIME 33.6 SECS (9.5-12.5)
[2018-08-29 07:46] LABS: GLUCOSE 597 mg/dL (70-99)
[2018-08-29 08:36] VITALS: BP_SYST 140
[2018-08-29 08:46] LABS: ERYTHROCYTE SEDIMENTATION RATE 53 MM/HR (0-20)
[2018-08-29 09:08] LABS: ANION GAP 10 (5-15); CALCIUM 8.8 mg/dL (8.4-11.0); CHLORIDE 105 mmol/L (98-107); CREATININE 5.19 mg/dL (0.55-1.30); GLUCOSE 78 mg/dL (70-99); SODIUM SERUM 139 mmol/L (136-145); UREA NITROGEN, BLOOD 38 mg/dL (8-21)
[2018-08-29] MEDS: FAMOTIDINE 20 MG TABLET PO SCH (10:53)
[2018-08-29] MEDS: cefTRIAXone 1 GM in D5W 50 ML IV SCH (10:53)
[2018-08-29] MEDS: METOPROLOL TARTRATE 50 MG TABLET PO SCH ×2 (10:54→21:04)
[2018-08-29] MEDS: NIFEDIPINE 30 MG TAB.ER.24 PO SCH ×2 (10:54→21:00)
[2018-08-29] MEDS: MEGESTROL ACETATE 40 MG TABLET PO SCH ×2 (10:54→21:04)
[2018-08-29] MEDS: cloNIDine HCL 0.1 MG TABLET PO SCH (10:54)
[2018-08-29] MEDS: SIMETHICONE 80 MG TAB.CHEW PO SCH ×3 (10:55→21:03)
[2018-08-29] MEDS: AZITHROMYCIN 500 MG in NS 250 ML IV SCH (12:22)
[2018-08-29 12:30] VITALS: BP_SYST 136
[2018-08-29] MEDS: FLUCONAZOLE 100 mg/ NS 50 ML IV SCH (13:59)
[2018-08-29] MEDS: D5NS 1,000 ML IV SCH (15:54)
[2018-08-29 16:45] VITALS: BP_SYST 100
[2018-08-29] MEDS ORDERED: HEPARIN SODIUM,PORCINE 5000 UNITS/ML VIAL MC ONE (17:15)
[2018-08-29] MEDS: SIMVASTATIN 10 MG TABLET PO SCH (17:42)
[2018-08-29 20:00] VITALS: BP_SYST 106
[2018-08-29] MEDS: DOCUSATE SODIUM 100 MG CAPSULE PO PRN (21:03)
[2018-08-29] MEDS: ACETAMINOPHEN 325 MG TABLET PO PRN (21:03)
[2018-08-29] MEDS ORDERED: PHYTONADIONE 10 MG/ML AMP SUBCUT ONE (22:15)
[2018-08-29 23:40] VITALS: BP_SYST 124
[2018-08-30] MEDS: D5NS 1,000 ML IV SCH (03:42)
[2018-08-30 05:18] VITALS: BP_SYST 121
[2018-08-30] MEDS: hydrALAZINE HCL 25 MG TABLET PO SCH ×3 (05:23→18:00)
[2018-08-30] MEDS: NORMAL SALINE 5 ML DISP.SYRIN IVF SCH ×3 (05:23→21:49)
[2018-08-30 08:05] LABS: ANION GAP 8 (5-15); C-REACTIVE PROTEIN QUANT 9.9 mg/dL (0-0.5); CALCIUM 8.9 mg/dL (8.4-11.0); CHLORIDE 108 mmol/L (98-107); CREATININE 5.49 mg/dL (0.55-1.30); GLUCOSE 123 mg/dL (70-99); POTASSIUM 4.3 mmol/L (3.5-5.1); SODIUM SERUM 138 mmol/L (136-145); UREA NITROGEN, BLOOD 36 mg/dL (8-21)
[2018-08-30 08:15] VITALS: BP_SYST 120
[2018-08-30 08:23] LABS: INR 2.9 (0.8-1.2)
[2018-08-30 08:38] LABS: HEMATOCRIT 30.1 % (36-48); HEMOGLOBIN 9.8 g/dL (12.0-16.0); MEAN CORPUSCULAR HEMOGLOBIN 31 pg (27-31); MEAN CORPUSCULAR HGB CONC 33 % (32-36); MEAN CORPUSCULAR VOLUME 95 fL (79.0-98.0); PLATELET COUNT (AUTO) 332 K/uL (130-430); RED BLOOD CELL COUNT(AUTO) 3.17 MIL/uL (4.2-6.2); RED CELL DISTRIBUTION WIDTH 18.9 % (9.0-15.0); WHITE BLOOD COUNT (AUTO) 13.2 K/uL (4.8-10.8)
[2018-08-30 08:39] LABS: EOSINOPHILS # (AUTO) 0.2 K/uL (0.0-0.4); EOSINOPHILS % (AUTO) 1.5 % (0.0-4.0); LYMPHOCYTES # (AUTO) 0.5 K/uL (1.0-5.5); MONOCYTES # (AUTO) 0.5 K/uL (0.0-1.0); MONOCYTES % (AUTO) 3.6 % (1.7-9.3); NEUTROPHILS # (AUTO) 11.9 K/uL (1.8-7.7); NEUTROPHILS % (AUTO) 89.9 % (40.0-70.0)
[2018-08-30 08:40] LABS: BASOPHILS # (AUTO) 0.1 K/uL (0.0-0.2)
[2018-08-30] MEDS: cefTRIAXone 1 GM in D5W 50 ML IV SCH (09:27)
[2018-08-30] MEDS: MEGESTROL ACETATE 40 MG TABLET PO SCH ×2 (09:28→22:06)
[2018-08-30] MEDS: SIMETHICONE 80 MG TAB.CHEW PO SCH ×3 (09:28→21:49)
[2018-08-30] MEDS: FAMOTIDINE 20 MG TABLET PO SCH (09:28)
[2018-08-30] MEDS: METOPROLOL TARTRATE 50 MG TABLET PO SCH ×2 (09:29→21:48)
[2018-08-30] MEDS: cloNIDine HCL 0.1 MG TABLET PO SCH (09:29)
[2018-08-30] MEDS: glipiZIDE XL 2.5 MG/TAB (GLUCOTROL XL) PO SCH (09:29)
[2018-08-30 09:32] LABS: ERYTHROCYTE SEDIMENTATION RATE 66 MM/HR (0-20)
[2018-08-30] MEDS ORDERED: HEPARIN SODIUM,PORCINE 5000 UNITS/ML VIAL ONE ×2 (12:11→12:37)
[2018-08-30 13:09] VITALS: BP_SYST 130
[2018-08-30] MEDS: FLUCONAZOLE 100 mg/ NS 50 ML IV SCH (13:32)
[2018-08-30] MEDS: DOCUSATE SODIUM 100 MG CAPSULE PO PRN (15:08)
[2018-08-30] MEDS: ACETAMINOPHEN 325 MG TABLET PO PRN (15:08)
[2018-08-30 15:35] VITALS: BP_SYST 104
[2018-08-30] MEDS: SIMVASTATIN 10 MG TABLET PO SCH (17:58)
[2018-08-30] MEDS ORDERED: ALBUMIN HUMAN 25% 50 ML IV SCH (20:30)
[2018-08-30] MEDS ORDERED: ALBUMIN HUMAN 25% 200 ML IV ONE (20:32)
[2018-08-30] MEDS: NIFEDIPINE 30 MG TAB.ER.24 PO SCH (21:00)
[2018-08-30] MEDS ORDERED: ALBUMIN HUMAN 25% 200 ML IV SCH (21:00)
[2018-08-30 21:43] VITALS: BP_SYST 116
[2018-08-30] MEDS ORDERED: ALTEPLASE 2 MG VIAL MC ONE ×2 (21:45→22:02)
[2018-08-30] MEDS: ONDANSETRON HCL 4 MG/2 ML VIAL IVP PRN (21:49)
[2018-08-30 23:55] VITALS: BP_SYST 116
[2018-08-31 00:04] VITALS: BP_SYST 102
[2018-08-31] MEDS: D5NS 1,000 ML IV SCH (05:02)
[2018-08-31 05:08] VITALS: BP_SYST 113
[2018-08-31] MEDS: NORMAL SALINE 5 ML DISP.SYRIN IVF SCH ×3 (05:08→20:49)
[2018-08-31] MEDS: DEXTROSE 50% JECT 50 ML DISP.SYRIN IVP PRN ×2 (05:51→11:10)
[2018-08-31] MEDS: hydrALAZINE HCL 25 MG TABLET PO SCH ×4 (06:00→17:02)
[2018-08-31 07:14] LABS: ANION GAP 9 (5-15); C-REACTIVE PROTEIN QUANT 9.8 mg/dL (0-0.5); CALCIUM 7.9 mg/dL (8.4-11.0); CHLORIDE 108 mmol/L (98-107); CREATININE 3.94 mg/dL (0.55-1.30); GLUCOSE 351 mg/dL (70-99); INR 1.7 (0.8-1.2); PHOSPHORUS 2.8 mg/dL (2.7-4.5); POTASSIUM 3.1 mmol/L (3.5-5.1); PROTHROMBIN TIME 16.7 SECS (9.5-12.5); SODIUM SERUM 141 mmol/L (136-145); UREA NITROGEN, BLOOD 25 mg/dL (8-21)
[2018-08-31 07:44] LABS: HEMOGLOBIN 7.9 g/dL (12.0-16.0); LYMPHOCYTES % (AUTO) 4.7 % (20.5-51.5); MEAN CORPUSCULAR HEMOGLOBIN 31 pg (27-31); MEAN CORPUSCULAR HGB CONC 32 % (32-36); MEAN CORPUSCULAR VOLUME 97 fL (79.0-98.0); NEUTROPHILS % (AUTO) 88.4 % (40.0-70.0); PLATELET COUNT (AUTO) 264 K/uL (130-430); RED BLOOD CELL COUNT(AUTO) 2.57 MIL/uL (4.2-6.2); RED CELL DISTRIBUTION WIDTH 19.1 % (9.0-15.0); WHITE BLOOD COUNT (AUTO) 11.8 K/uL (4.8-10.8)
[2018-08-31 07:45] LABS: BASOPHILS # (AUTO) 0.1 K/uL (0.0-0.2); BASOPHILS % (AUTO) 0.5 % (0.0-2.0); EOSINOPHILS # (AUTO) 0.2 K/uL (0.0-0.4); EOSINOPHILS % (AUTO) 1.5 % (0.0-4.0); LYMPHOCYTES # (AUTO) 0.6 K/uL (1.0-5.5); MONOCYTES # (AUTO) 0.6 K/uL (0.0-1.0); MONOCYTES % (AUTO) 4.9 % (1.7-9.3); NEUTROPHILS # (AUTO) 10.5 K/uL (1.8-7.7)
[2018-08-31 08:16] VITALS: BP_SYST 110
[2018-08-31 08:35] LABS: ERYTHROCYTE SEDIMENTATION RATE 44 MM/HR (0-20)
[2018-08-31] MEDS: NIFEDIPINE 30 MG TAB.ER.24 PO SCH ×2 (09:00→21:00)
[2018-08-31] MEDS: cloNIDine HCL 0.1 MG TABLET PO SCH (09:00)
[2018-08-31] MEDS: METOPROLOL TARTRATE 50 MG TABLET PO SCH ×2 (09:00→20:42)
[2018-08-31] MEDS: cefTRIAXone 1 GM in D5W 50 ML IV SCH (09:29)
[2018-08-31] MEDS: SIMETHICONE 80 MG TAB.CHEW PO SCH ×3 (09:30→20:49)
[2018-08-31] MEDS: MEGESTROL ACETATE 40 MG TABLET PO SCH ×2 (09:30→20:43)
[2018-08-31] MEDS: FAMOTIDINE 20 MG TABLET PO SCH (09:30)
[2018-08-31] MEDS ORDERED: AZITHROMYCIN 500 MG in NS 250 ML IV SCH (10:00)
[2018-08-31] MEDS ORDERED: COMMUNICATION ORDER XX ONE (11:30)
[2018-08-31] MEDS ORDERED: ALBUMIN HUMAN 25% 200 ML IV ONE (12:00)
[2018-08-31] MEDS: ALBUTEROL SULFATE 0.083% 2.5 MG/3 ML VIAL.NEB INH PRN (12:57)
[2018-08-31 13:00] VITALS: BP_SYST 106
[2018-08-31] MEDS: D10W 1,000 ML IV SCH (13:18)
[2018-08-31] MEDS ORDERED: POTASSIUM CHLORIDE 20 MEQ/PKT PACKET PO ONE (14:00)
[2018-08-31] MEDS ORDERED: HEPARIN SODIUM,PORCINE 5000 UNITS/ML VIAL IV ONE (14:15)
[2018-08-31] MEDS ORDERED: HEPARIN SODIUM,PORCINE 5000 UNITS/ML VIAL ONE (14:30)
[2018-08-31] MEDS: FLUCONAZOLE 100 mg/ NS 50 ML IV SCH (14:53)
[2018-08-31 15:29] VITALS: BP_SYST 111
[2018-08-31] MEDS: WARFARIN SODIUM 1 MG TABLET PO SCH (17:03)
[2018-08-31] MEDS: SIMVASTATIN 10 MG TABLET PO SCH (17:03)
[2018-08-31 20:37] VITALS: BP_SYST 118
[2018-09-01 00:40] VITALS: BP_SYST 111
[2018-09-01] MEDS: hydrALAZINE HCL 25 MG TABLET PO SCH ×4 (01:04→18:00)
[2018-09-01] MEDS: ALBUTEROL SULFATE 0.083% 2.5 MG/3 ML VIAL.NEB INH PRN (02:10)
[2018-09-01] MEDS: NORMAL SALINE 5 ML DISP.SYRIN IVF SCH ×3 (05:33→22:23)
[2018-09-01 07:21] LABS: INR 1.1 (0.8-1.2); PROTHROMBIN TIME 11.3 SECS (9.5-12.5)
[2018-09-01 07:41] LABS: ALANINE AMINOTRANSFERASE 28 U/L (12-78); ALBUMIN 2.5 g/dL (3.4-4.8); ANION GAP 5 (5-15); ASPARTATE AMINOTRANSFERASE 169 U/L (10-37); C-REACTIVE PROTEIN QUANT 10.7 mg/dL (0-0.5); CALCIUM 8.7 mg/dL (8.4-11.0); CHLORIDE 100 mmol/L (98-107); GLUCOSE 85 mg/dL (70-99); PHOSPHORUS 1.7 mg/dL (2.7-4.5); POTASSIUM 4.5 mmol/L (3.5-5.1); SODIUM SERUM 136 mmol/L (136-145); TOTAL BILIRUBIN 0.7 mg/dL (0.0-1.0); UREA NITROGEN, BLOOD 13 mg/dL (8-21)
[2018-09-01 07:55] LABS: HEMATOCRIT 25.6 % (36-48); HEMOGLOBIN 8.4 g/dL (12.0-16.0); MEAN CORPUSCULAR HEMOGLOBIN 31 pg (27-31); MEAN CORPUSCULAR HGB CONC 33 % (32-36); MEAN CORPUSCULAR VOLUME 96 fL (79.0-98.0); RED BLOOD CELL COUNT(AUTO) 2.68 MIL/uL (4.2-6.2); WHITE BLOOD COUNT (AUTO) 9.8 K/uL (4.8-10.8)
[2018-09-01 07:56] LABS: BASOPHILS # (AUTO) 0.1 K/uL (0.0-0.2); BASOPHILS % (AUTO) 0.7 % (0.0-2.0); EOSINOPHILS # (AUTO) 0.2 K/uL (0.0-0.4); EOSINOPHILS % (AUTO) 2.1 % (0.0-4.0); LYMPHOCYTES # (AUTO) 0.5 K/uL (1.0-5.5); LYMPHOCYTES % (AUTO) 5.6 % (20.5-51.5); MONOCYTES # (AUTO) 0.6 K/uL (0.0-1.0); MONOCYTES % (AUTO) 6.2 % (1.7-9.3); NEUTROPHILS # (AUTO) 8.4 K/uL (1.8-7.7); NEUTROPHILS % (AUTO) 85.4 % (40.0-70.0); PLATELET COUNT (AUTO) 232 K/uL (130-430); RED CELL DISTRIBUTION WIDTH 20.4 % (9.0-15.0)
[2018-09-01 08:00] VITALS: BP_SYST 132
[2018-09-01] MEDS: SIMETHICONE 80 MG TAB.CHEW PO SCH ×4 (08:25→21:00)
[2018-09-01] MEDS: FAMOTIDINE 20 MG TABLET PO SCH (08:25)
[2018-09-01] MEDS: cloNIDine HCL 0.1 MG TABLET PO SCH (08:26)
[2018-09-01] MEDS: METOPROLOL TARTRATE 50 MG TABLET PO SCH ×3 (08:26→21:00)
[2018-09-01] MEDS: MEGESTROL ACETATE 40 MG TABLET PO SCH ×3 (08:26→21:00)
[2018-09-01] MEDS: NIFEDIPINE 30 MG TAB.ER.24 PO SCH ×3 (08:26→21:00)
[2018-09-01] MEDS: cefTRIAXone 1 GM in D5W 50 ML IV SCH (08:28)
[2018-09-01] MEDS: D10W 1,000 ML IV SCH (08:30)
[2018-09-01] MEDS: glipiZIDE XL 2.5 MG/TAB (GLUCOTROL XL) PO SCH (09:00)
[2018-09-01 09:22] LABS: ERYTHROCYTE SEDIMENTATION RATE 62 MM/HR (0-20)
[2018-09-01] MEDS: FLUCONAZOLE 100 mg/ NS 50 ML IV SCH (11:16)
[2018-09-01 12:50] VITALS: BP_SYST 127
[2018-09-01 16:07] VITALS: BP_SYST 138
[2018-09-01] MEDS: SIMVASTATIN 10 MG TABLET PO SCH (18:00)
[2018-09-01] MEDS: WARFARIN SODIUM 1 MG TABLET PO SCH (18:00)
[2018-09-01 20:58] VITALS: BP_SYST 125
[2018-09-01 23:39] VITALS: BP_SYST 147
[2018-09-02] MEDS: D10W 1,000 ML IV SCH (04:37)
[2018-09-02] MEDS: NORMAL SALINE 5 ML DISP.SYRIN IVF SCH ×3 (05:57→20:49)
[2018-09-02] MEDS: hydrALAZINE HCL 25 MG TABLET PO SCH ×4 (05:57→18:00)
[2018-09-02 07:08] LABS: EOSINOPHILS % (AUTO) 3.5 % (0.0-4.0); HEMATOCRIT 28.3 % (36-48); HEMOGLOBIN 9.1 g/dL (12.0-16.0); LYMPHOCYTES % (AUTO) 7.1 % (20.5-51.5); MEAN CORPUSCULAR HEMOGLOBIN 31 pg (27-31); MEAN CORPUSCULAR HGB CONC 32 % (32-36); MEAN CORPUSCULAR VOLUME 97 fL (79.0-98.0); NEUTROPHILS % (AUTO) 82.9 % (40.0-70.0); PLATELET COUNT (AUTO) 243 K/uL (130-430); RED BLOOD CELL COUNT(AUTO) 2.92 MIL/uL (4.2-6.2); RED CELL DISTRIBUTION WIDTH 19.5 % (9.0-15.0)
[2018-09-02 07:09] LABS: BASOPHILS % (AUTO) 0.5 % (0.0-2.0); EOSINOPHILS # (AUTO) 0.3 K/uL (0.0-0.4); LYMPHOCYTES # (AUTO) 0.6 K/uL (1.0-5.5); MONOCYTES # (AUTO) 0.5 K/uL (0.0-1.0); NEUTROPHILS # (AUTO) 7.4 K/uL (1.8-7.7)
[2018-09-02 07:17] LABS: ALANINE AMINOTRANSFERASE 25 U/L (12-78); ALBUMIN 2.4 g/dL (3.4-4.8); ANION GAP 7 (5-15); ASPARTATE AMINOTRANSFERASE 149 U/L (10-37); BILIRUBIN,DIRECT 0.3 mg/dL (0.0-0.3); CALCIUM 8.7 mg/dL (8.4-11.0); CHLORIDE 96 mmol/L (98-107); CREATININE 3.57 mg/dL (0.55-1.30); GLUCOSE 154 mg/dL (70-99); PHOSPHORUS 2.6 mg/dL (2.7-4.5); POTASSIUM 4.4 mmol/L (3.5-5.1); SODIUM SERUM 131 mmol/L (136-145); TOTAL BILIRUBIN 0.7 mg/dL (0.0-1.0); UREA NITROGEN, BLOOD 23 mg/dL (8-21)
[2018-09-02 08:10] LABS: INR 1.1 (0.8-1.2); PROTHROMBIN TIME 11.3 SECS (9.5-12.5)
[2018-09-02 08:40] LABS: ERYTHROCYTE SEDIMENTATION RATE 58 MM/HR (0-20)
[2018-09-02] MEDS: cefTRIAXone 1 GM in D5W 50 ML IV SCH (08:54)
[2018-09-02] MEDS: METOPROLOL TARTRATE 50 MG TABLET PO SCH ×2 (09:00→20:42)
[2018-09-02] MEDS: NIFEDIPINE 30 MG TAB.ER.24 PO SCH ×2 (09:00→20:43)
[2018-09-02] MEDS: MEGESTROL ACETATE 40 MG TABLET PO SCH ×2 (09:00→20:42)
[2018-09-02] MEDS: cloNIDine HCL 0.1 MG TABLET PO SCH (09:00)
[2018-09-02] MEDS: SIMETHICONE 80 MG TAB.CHEW PO SCH ×3 (09:00→20:42)
[2018-09-02] MEDS: FAMOTIDINE 20 MG TABLET PO SCH (09:00)
[2018-09-02 09:02] VITALS: BP_SYST 140
[2018-09-02 11:48] VITALS: BP_SYST 140
[2018-09-02 11:50] VITALS: BP_SYST 140; BP_SYST 175
[2018-09-02 16:36] VITALS: BP_SYST 121
[2018-09-02] MEDS: SIMVASTATIN 10 MG TABLET PO SCH (18:00)
[2018-09-02] MEDS ORDERED: MAGNESIUM SULFATE 3 GM in D5W 100 ML IV ONE (19:00)
[2018-09-02 20:00] VITALS: BP_SYST 104
[2018-09-02] MEDS ORDERED: MAGNESIUM SULFATE 1 GM/2 ML VIAL ONE (20:56)
[2018-09-02 21:29] LABS: HEMOGLOBIN 7.1 g/dL (12.0-16.0); RED BLOOD CELL COUNT(AUTO) 2.25 MIL/uL (4.2-6.2); WHITE BLOOD COUNT (AUTO) 8.6 K/uL (4.8-10.8)
[2018-09-02 21:33] LABS: HEMATOCRIT 21.6 % (36-48); MEAN CORPUSCULAR HEMOGLOBIN 32 pg (27-31); MEAN CORPUSCULAR HGB CONC 33 % (32-36); MEAN CORPUSCULAR VOLUME 96 fL (79.0-98.0); PLATELET COUNT (AUTO) 227 K/uL (130-430); RED CELL DISTRIBUTION WIDTH 19.7 % (9.0-15.0)
[2018-09-02 21:34] LABS: BASOPHILS # (AUTO) 0.1 K/uL (0.0-0.2); BASOPHILS % (AUTO) 0.6 % (0.0-2.0); EOSINOPHILS # (AUTO) 0.2 K/uL (0.0-0.4); EOSINOPHILS % (AUTO) 2.3 % (0.0-4.0); LYMPHOCYTES # (AUTO) 0.6 K/uL (1.0-5.5); LYMPHOCYTES % (AUTO) 6.7 % (20.5-51.5); MONOCYTES # (AUTO) 0.7 K/uL (0.0-1.0); MONOCYTES % (AUTO) 7.9 % (1.7-9.3); NEUTROPHILS # (AUTO) 7.1 K/uL (1.8-7.7); NEUTROPHILS % (AUTO) 82.5 % (40.0-70.0)
[2018-09-02] MEDS ORDERED: PANTOPRAZOLE SODIUM 40 MG/VIAL (PROTONIX) IVP SCH (22:30)
[2018-09-03] MEDS: D10W 1,000 ML IV SCH (01:58)
[2018-09-03 02:29] VITALS: BP_SYST 145
[2018-09-03] MEDS: hydrALAZINE HCL 25 MG TABLET PO SCH ×4 (05:50→18:00)
[2018-09-03] MEDS: NORMAL SALINE 5 ML DISP.SYRIN IVF SCH ×3 (05:50→21:11)
[2018-09-03] MEDS ORDERED: CEFAZOLIN 1 GM IVPB PREMIX 50 ML IV ONE ×2 (06:30→08:00)
[2018-09-03 07:31] VITALS: BP_SYST 153
[2018-09-03] MEDS: PANTOPRAZOLE SODIUM 40 MG/VIAL (PROTONIX) IVP SCH ×2 (08:09→21:16)
[2018-09-03 08:45] LABS: INR 1.1 (0.8-1.2); PROTHROMBIN TIME 11.4 SECS (9.5-12.5)
[2018-09-03 09:00] LABS: HEMATOCRIT 32.3 % (36-48); HEMOGLOBIN 10.7 g/dL (12.0-16.0); RED BLOOD CELL COUNT(AUTO) 3.48 MIL/uL (4.2-6.2); WHITE BLOOD COUNT (AUTO) 8.7 K/uL (4.8-10.8)
[2018-09-03] MEDS: NIFEDIPINE 30 MG TAB.ER.24 PO SCH ×2 (09:00→21:00)
[2018-09-03] MEDS: SIMETHICONE 80 MG TAB.CHEW PO SCH ×3 (09:00→21:00)
[2018-09-03] MEDS: METOPROLOL TARTRATE 50 MG TABLET PO SCH ×2 (09:00→21:00)
[2018-09-03] MEDS: MEGESTROL ACETATE 40 MG TABLET PO SCH ×2 (09:00→21:00)
[2018-09-03] MEDS: cloNIDine HCL 0.1 MG TABLET PO SCH (09:00)
[2018-09-03 09:01] LABS: BASOPHILS % (AUTO) 0.5 % (0.0-2.0); EOSINOPHILS % (AUTO) 2.9 % (0.0-4.0); LYMPHOCYTES % (AUTO) 6.3 % (20.5-51.5); MEAN CORPUSCULAR HEMOGLOBIN 31 pg (27-31); MEAN CORPUSCULAR HGB CONC 33 % (32-36); MEAN CORPUSCULAR VOLUME 93 fL (79.0-98.0); MONOCYTES % (AUTO) 8.9 % (1.7-9.3); NEUTROPHILS % (AUTO) 81.4 % (40.0-70.0); PLATELET COUNT (AUTO) 182 K/uL (130-430); RED CELL DISTRIBUTION WIDTH 15.9 % (9.0-15.0)
[2018-09-03 09:02] LABS: EOSINOPHILS # (AUTO) 0.3 K/uL (0.0-0.4); LYMPHOCYTES # (AUTO) 0.6 K/uL (1.0-5.5); MONOCYTES # (AUTO) 0.8 K/uL (0.0-1.0); NEUTROPHILS # (AUTO) 7.1 K/uL (1.8-7.7)
[2018-09-03 12:02] VITALS: BP_SYST 93
[2018-09-03] MEDS: metroNIDAZOLE 500 mg/NS 100 ML IV SCH ×2 (14:07→21:17)
[2018-09-03 16:23] VITALS: BP_SYST 129
[2018-09-03 16:42] LABS: WHITE BLOOD COUNT (AUTO) 9.1 K/uL (4.8-10.8)
[2018-09-03 16:43] LABS: RED BLOOD CELL COUNT(AUTO) 3.35 MIL/uL (4.2-6.2)
[2018-09-03 16:44] LABS: HEMATOCRIT 30.9 % (36-48); HEMOGLOBIN 10.4 g/dL (12.0-16.0); MEAN CORPUSCULAR HEMOGLOBIN 31 pg (27-31); MEAN CORPUSCULAR HGB CONC 34 % (32-36); MEAN CORPUSCULAR VOLUME 92 fL (79.0-98.0); RED CELL DISTRIBUTION WIDTH 16.8 % (9.0-15.0)
[2018-09-03 16:45] LABS: BASOPHILS % (AUTO) 1.1 % (0.0-2.0); EOSINOPHILS % (AUTO) 2.8 % (0.0-4.0); LYMPHOCYTES % (AUTO) 6.3 % (20.5-51.5); MONOCYTES % (AUTO) 9.6 % (1.7-9.3); NEUTROPHILS # (AUTO) 7.3 K/uL (1.8-7.7); NEUTROPHILS % (AUTO) 80.2 % (40.0-70.0); PLATELET COUNT (AUTO) 185 K/uL (130-430)
[2018-09-03 16:46] LABS: BASOPHILS # (AUTO) 0.1 K/uL (0.0-0.2); EOSINOPHILS # (AUTO) 0.3 K/uL (0.0-0.4); LYMPHOCYTES # (AUTO) 0.6 K/uL (1.0-5.5); MONOCYTES # (AUTO) 0.9 K/uL (0.0-1.0)
[2018-09-03] MEDS ORDERED: BISACODYL 5 MG TABLET.DR (DULCOLAX) PO ONE (17:00)
[2018-09-03] MEDS ORDERED: GOLYTELY / COLYTE SOLUTION 4 LITERS PO ONE (18:00)
[2018-09-03] MEDS: SIMVASTATIN 10 MG TABLET PO SCH (18:00)
[2018-09-03 18:26] VITALS: BP_SYST 129
[2018-09-03 20:00] VITALS: BP_SYST 159
[2018-09-04] MEDS: D10W 1,000 ML IV SCH (02:04)
[2018-09-04 03:26] VITALS: BP_SYST 125
[2018-09-04] MEDS: metroNIDAZOLE 500 mg/NS 100 ML IV SCH ×3 (05:09→22:06)
[2018-09-04] MEDS: hydrALAZINE HCL 25 MG TABLET PO SCH ×4 (05:09→18:00)
[2018-09-04] MEDS: NORMAL SALINE 5 ML DISP.SYRIN IVF SCH ×3 (05:09→22:08)
[2018-09-04 07:51] LABS: ALANINE AMINOTRANSFERASE 21 U/L (12-78); ALBUMIN 2.2 g/dL (3.4-4.8); ANION GAP 8 (5-15); ASPARTATE AMINOTRANSFERASE 129 U/L (10-37); CALCIUM 8.2 mg/dL (8.4-11.0); CHLORIDE 98 mmol/L (98-107); CREATININE 3.61 mg/dL (0.55-1.30); GLUCOSE 101 mg/dL (70-99); PHOSPHORUS 2.4 mg/dL (2.7-4.5); SODIUM SERUM 131 mmol/L (136-145); TOTAL BILIRUBIN 0.8 mg/dL (0.0-1.0); UREA NITROGEN, BLOOD 19 mg/dL (8-21)
[2018-09-04 07:53] VITALS: BP_SYST 158
[2018-09-04 08:15] LABS: HEMATOCRIT 31.9 % (36-48); HEMOGLOBIN 10.8 g/dL (12.0-16.0); MEAN CORPUSCULAR HEMOGLOBIN 31 pg (27-31); MEAN CORPUSCULAR HGB CONC 34 % (32-36); MEAN CORPUSCULAR VOLUME 92 fL (79.0-98.0); RED BLOOD CELL COUNT(AUTO) 3.48 MIL/uL (4.2-6.2); WHITE BLOOD COUNT (AUTO) 8.7 K/uL (4.8-10.8)
[2018-09-04 08:16] LABS: BASOPHILS # (AUTO) 0.1 K/uL (0.0-0.2); BASOPHILS % (AUTO) 0.9 % (0.0-2.0); EOSINOPHILS # (AUTO) 0.3 K/uL (0.0-0.4); EOSINOPHILS % (AUTO) 2.9 % (0.0-4.0); LYMPHOCYTES # (AUTO) 0.5 K/uL (1.0-5.5); LYMPHOCYTES % (AUTO) 6.3 % (20.5-51.5); MONOCYTES # (AUTO) 0.8 K/uL (0.0-1.0); MONOCYTES % (AUTO) 8.7 % (1.7-9.3); NEUTROPHILS # (AUTO) 7.1 K/uL (1.8-7.7); NEUTROPHILS % (AUTO) 81.2 % (40.0-70.0); PLATELET COUNT (AUTO) 192 K/uL (130-430)
[2018-09-04 08:23] LABS: INR 1.1 (0.8-1.2); PROTHROMBIN TIME 10.8 SECS (9.5-12.5)
[2018-09-04] MEDS: cloNIDine HCL 0.1 MG TABLET PO SCH (09:00)
[2018-09-04] MEDS: MEGESTROL ACETATE 40 MG TABLET PO SCH ×2 (09:00→22:07)
[2018-09-04] MEDS: NIFEDIPINE 30 MG TAB.ER.24 PO SCH ×2 (09:00→22:08)
[2018-09-04] MEDS: glipiZIDE XL 2.5 MG/TAB (GLUCOTROL XL) PO SCH (09:00)
[2018-09-04] MEDS: METOPROLOL TARTRATE 50 MG TABLET PO SCH ×2 (09:00→22:07)
[2018-09-04] MEDS: SIMETHICONE 80 MG TAB.CHEW PO SCH ×3 (09:00→22:08)
[2018-09-04] MEDS ORDERED: fentaNYL CITRATE/PF 100 MCG/2 ML AMP ONE (10:26)
[2018-09-04] MEDS ORDERED: MIDAZOLAM HCL 5 MG/5 ML VIAL ONE (10:26)
[2018-09-04] MEDS ORDERED: SIMETHICONE 40 MG/0.6 ML ML ONE (10:26)
[2018-09-04] MEDS ORDERED: POTASSIUM CHLORIDE 40 MEQ in NS 250 ML IV ONE (12:15)
[2018-09-04 12:19] VITALS: BP_SYST 155
[2018-09-04] MEDS: ALBUTEROL SULFATE 0.083% 2.5 MG/3 ML VIAL.NEB INH PRN (12:50)
[2018-09-04] MEDS ORDERED: NA PHOS 15 MM in NS 250 ML IV ONE (13:00)
[2018-09-04] MEDS: PANTOPRAZOLE SODIUM 40 MG/VIAL (PROTONIX) IVP SCH ×2 (15:25→22:07)
[2018-09-04] MEDS ORDERED: MORPHINE 4 MG/ML INJ. SYRINGE IVP PRN ×2 (15:45)
[2018-09-04] MEDS: ACETAMINOPHEN 650 MG SUPP.RECT RC PRN (16:13)
[2018-09-04 16:17] VITALS: BP_SYST 126
[2018-09-04] MEDS: SIMVASTATIN 10 MG TABLET PO SCH (18:00)
[2018-09-04 19:20] VITALS: BP_SYST 149
[2018-09-05 00:17] VITALS: BP_SYST 102
[2018-09-05] MEDS: hydrALAZINE HCL 25 MG TABLET PO SCH ×5 (01:00→23:53)
[2018-09-05] MEDS: D10W 1,000 ML IV SCH (02:56)
[2018-09-05] MEDS: metroNIDAZOLE 500 mg/NS 100 ML IV SCH ×3 (06:03→22:43)
[2018-09-05] MEDS: NORMAL SALINE 5 ML DISP.SYRIN IVF SCH ×3 (06:03→22:44)
[2018-09-05 06:21] LABS: ANION GAP 12 (5-15); CALCIUM 7.8 mg/dL (8.4-11.0); CHLORIDE 101 mmol/L (98-107); CREATININE 4.47 mg/dL (0.55-1.30); GLUCOSE 136 mg/dL (70-99); POTASSIUM 3.9 mmol/L (3.5-5.1); SODIUM SERUM 135 mmol/L (136-145); UREA NITROGEN, BLOOD 29 mg/dL (8-21)
[2018-09-05 06:31] LABS: PHOSPHORUS 4.9 mg/dL (2.7-4.5)
[2018-09-05 07:27] LABS: HEMATOCRIT 28.1 % (36-48); HEMOGLOBIN 9.3 g/dL (12.0-16.0); MEAN CORPUSCULAR VOLUME 94 fL (79.0-98.0); RED BLOOD CELL COUNT(AUTO) 2.99 MIL/uL (4.2-6.2)
[2018-09-05 07:28] LABS: BASOPHILS % (AUTO) 0.8 % (0.0-2.0); EOSINOPHILS # (AUTO) 0.1 K/uL (0.0-0.4); EOSINOPHILS % (AUTO) 1.2 % (0.0-4.0); LYMPHOCYTES # (AUTO) 0.5 K/uL (1.0-5.5); LYMPHOCYTES % (AUTO) 4.8 % (20.5-51.5); MEAN CORPUSCULAR HEMOGLOBIN 31 pg (27-31); MEAN CORPUSCULAR HGB CONC 33 % (32-36); MONOCYTES # (AUTO) 0.9 K/uL (0.0-1.0); MONOCYTES % (AUTO) 8.5 % (1.7-9.3); NEUTROPHILS # (AUTO) 9.4 K/uL (1.8-7.7); NEUTROPHILS % (AUTO) 84.7 % (40.0-70.0); PLATELET COUNT (AUTO) 225 K/uL (130-430); RED CELL DISTRIBUTION WIDTH 17.7 % (9.0-15.0)
[2018-09-05 07:29] LABS: BASOPHILS # (AUTO) 0.1 K/uL (0.0-0.2)
[2018-09-05 08:34] VITALS: BP_SYST 113
[2018-09-05] MEDS: MEGESTROL ACETATE 40 MG TABLET PO SCH ×2 (08:40→22:45)
[2018-09-05] MEDS: SIMETHICONE 80 MG TAB.CHEW PO SCH ×3 (08:40→22:41)
[2018-09-05] MEDS: PANTOPRAZOLE SODIUM 40 MG/VIAL (PROTONIX) IVP SCH ×2 (08:40→22:42)
[2018-09-05] MEDS: METOPROLOL TARTRATE 50 MG TABLET PO SCH ×2 (08:41→21:00)
[2018-09-05 08:51] LABS: ERYTHROCYTE SEDIMENTATION RATE 18 MM/HR (0-20)
[2018-09-05] MEDS: cloNIDine HCL 0.1 MG TABLET PO SCH (10:57)
[2018-09-05] MEDS: NIFEDIPINE 30 MG TAB.ER.24 PO SCH ×2 (10:57→21:00)
[2018-09-05 12:32] VITALS: BP_SYST 132
[2018-09-05] MEDS: SIMVASTATIN 10 MG TABLET PO SCH (17:00)
[2018-09-05] MEDS: ACETAMINOPHEN 650 MG SUPP.RECT RC PRN (17:01)
[2018-09-05 17:11] VITALS: BP_SYST 121
[2018-09-05 20:00] VITALS: BP_SYST 105
[2018-09-05] MEDS: INSULIN REGULAR, HUMAN 100 UNITS/ML, 10 ML VIAL (novoLIN R) SUBCUT PRN (22:55)
[2018-09-06 00:30] VITALS: BP_SYST 93
[2018-09-06] MEDS: hydrALAZINE HCL 25 MG TABLET PO SCH ×2 (06:00→12:00)
[2018-09-06] MEDS: metroNIDAZOLE 500 mg/NS 100 ML IV SCH (06:02)
[2018-09-06] MEDS: NORMAL SALINE 5 ML DISP.SYRIN IVF SCH (06:03)
[2018-09-06 07:23] LABS: ANION GAP 7 (5-15); C-REACTIVE PROTEIN QUANT 4.9 mg/dL (0-0.5); CHLORIDE 104 mmol/L (98-107); CREATININE 2.64 mg/dL (0.55-1.30); GLUCOSE 132 mg/dL (70-99); PHOSPHORUS 3.3 mg/dL (2.7-4.5); POTASSIUM 3.2 mmol/L (3.5-5.1); SODIUM SERUM 136 mmol/L (136-145); UREA NITROGEN, BLOOD 18 mg/dL (8-21)
[2018-09-06 07:53] LABS: WHITE BLOOD COUNT (AUTO) 14.1 K/uL (4.8-10.8)
[2018-09-06 07:54] LABS: BASOPHILS % (AUTO) 0.3 % (0.0-2.0); EOSINOPHILS # (AUTO) 0.1 K/uL (0.0-0.4); HEMOGLOBIN 8.6 g/dL (12.0-16.0); LYMPHOCYTES # (AUTO) 0.4 K/uL (1.0-5.5); LYMPHOCYTES % (AUTO) 3.1 % (20.5-51.5); MEAN CORPUSCULAR HEMOGLOBIN 31 pg (27-31); MEAN CORPUSCULAR HGB CONC 33 % (32-36); MEAN CORPUSCULAR VOLUME 94 fL (79.0-98.0); MONOCYTES # (AUTO) 1.4 K/uL (0.0-1.0); MONOCYTES % (AUTO) 9.9 % (1.7-9.3); NEUTROPHILS # (AUTO) 12.1 K/uL (1.8-7.7); NEUTROPHILS % (AUTO) 85.7 % (40.0-70.0); PLATELET COUNT (AUTO) 195 K/uL (130-430); RED BLOOD CELL COUNT(AUTO) 2.77 MIL/uL (4.2-6.2); RED CELL DISTRIBUTION WIDTH 18.1 % (9.0-15.0)
[2018-09-06 08:08] LABS: ERYTHROCYTE SEDIMENTATION RATE 14 MM/HR (0-20)
[2018-09-06 08:30] VITALS: BP_SYST 126
[2018-09-06] MEDS: PANTOPRAZOLE SODIUM 40 MG/VIAL (PROTONIX) IVP SCH (09:00)
[2018-09-06] MEDS: NIFEDIPINE 30 MG TAB.ER.24 PO SCH (09:01)
[2018-09-06] MEDS: METOPROLOL TARTRATE 50 MG TABLET PO SCH (09:01)
[2018-09-06] MEDS: MEGESTROL ACETATE 40 MG TABLET PO SCH (09:01)
[2018-09-06] MEDS: SIMETHICONE 80 MG TAB.CHEW PO SCH (09:01)
[2018-09-06] MEDS: cloNIDine HCL 0.1 MG TABLET PO SCH (09:02)
[2018-09-06] MEDS: glipiZIDE XL 2.5 MG/TAB (GLUCOTROL XL) PO SCH (11:19)
[2018-09-06] MEDS: ALBUTEROL SULFATE 0.083% 2.5 MG/3 ML VIAL.NEB INH PRN (11:34)
[2018-09-06 11:46] VITALS: BP_SYST 115
[2018-09-06 12:39] VITALS: BP_SYST 115
== END 2018-09-06 13:05 | DRG 206 ==
LOC: SED 15:10 → SMU 18:38
PROVIDERS: ADMIT Preventive Medicine Preventive Medicine/Occupational Environmental Medicine; ATTEND Preventive Medicine Preventive Medicine/Occupational Environmental Medicine
PROC: 5A1D70Z Performance of Urinary Filtration, Intermittent, Less than 6 Hours Per Day (ICD-10-PCS; 2018-08-26)
PROC: 5A1D70Z Performance of Urinary Filtration, Intermittent, Less than 6 Hours Per Day (ICD-10-PCS; 2018-08-29)
PROC: 02HV33Z Insertion of Infusion Device into Superior Vena Cava, Percutaneous Approach (ICD-10-PCS; 2018-08-30)
PROC: B548ZZA Ultrasonography of Superior Vena Cava, Guidance (ICD-10-PCS; 2018-08-30)
PROC: 5A1D70Z Performance of Urinary Filtration, Intermittent, Less than 6 Hours Per Day (ICD-10-PCS; 2018-08-31)
PROC: 30233N1 Transfusion of Nonautologous Red Blood Cells into Peripheral Vein, Percutaneous Approach (ICD-10-PCS; principal; 2018-09-02)
PROC: 5A1D70Z Performance of Urinary Filtration, Intermittent, Less than 6 Hours Per Day (ICD-10-PCS; 2018-09-02)
PROC: 0DJD8ZZ Inspection of Lower Intestinal Tract, Via Natural or Artificial Opening Endoscopic (ICD-10-PCS; 2018-09-04)
PROC: 0DB68ZZ Excision of Stomach, Via Natural or Artificial Opening Endoscopic (ICD-10-PCS; 2018-09-04 13:00)
PROC: 0DH63UZ Insertion of Feeding Device into Stomach, Percutaneous Approach (ICD-10-PCS; 2018-09-04 13:00)
PROC: 5A1D70Z Performance of Urinary Filtration, Intermittent, Less than 6 Hours Per Day (ICD-10-PCS; 2018-09-05)
DX: T82.818A Embolism due to vascular prosthetic devices, implants and grafts, initial encounter (principal); E43 Unspecified severe protein-calorie malnutrition; A41.9 Sepsis, unspecified organism; G93.41 Metabolic encephalopathy; J18.9 Pneumonia, unspecified organism; R13.10 Dysphagia, unspecified; C22.0 Liver cell carcinoma; K26.9 Duodenal ulcer, unspecified as acute or chronic, without hemorrhage or perforation; E11.21 Type 2 diabetes mellitus with diabetic nephropathy; D68.9 Coagulation defect, unspecified; E11.65 Type 2 diabetes mellitus with hyperglycemia; E11.22 Type 2 diabetes mellitus with diabetic chronic kidney disease; N18.6 End stage renal disease; I48.2 Chronic atrial fibrillation; D63.8 Anemia in other chronic diseases classified elsewhere; E78.00 Pure hypercholesterolemia, unspecified; E78.5 Hyperlipidemia, unspecified; E87.1 Hypo-osmolality and hyponatremia; C50.919 Malignant neoplasm of unspecified site of unspecified female breast; E83.39 Other disorders of phosphorus metabolism; E83.42 Hypomagnesemia; E83.51 Hypocalcemia; E87.6 Hypokalemia; I13.11 Hypertensive heart and chronic kidney disease without heart failure, with stage 5 chronic kidney disease, or end stage renal disease; I25.10 Atherosclerotic heart disease of native coronary artery without angina pectoris; K21.0 Gastro-esophageal reflux disease with esophagitis; K44.9 Diaphragmatic hernia without obstruction or gangrene; K64.8 Other hemorrhoids; Z79.01 Long term (current) use of anticoagulants; Z99.2 Dependence on renal dialysis; T82.510A Breakdown (mechanical) of surgically created arteriovenous fistula, initial encounter; Y71.2 Prosthetic and other implants, materials and accessory cardiovascular devices associated with adverse incidents; Y83.2 Surgical operation with anastomosis, bypass or graft as the cause of abnormal reaction of the patient, or of later complication, without mention of misadventure at the time of the procedure; Z85.05 Personal history of malignant neoplasm of liver; E83.41 Hypermagnesemia
CPT/HCPCS: 36415; 43239; 43246; 45378; 70450-TC; 71045; 74270-TC; 76937; 80048; 80053; 80061; 80076; 82140-TC; 82962; 83605; 83735-TC; 84100-TC; 84484; 85025; 85610-TC; 85651-TC; 85730-TC; 86140; 86886; 86900; 86901; 86920; 87040-TC; 87045-TC; 87046; 87081; 87230-TC; 88305; 88312; 88313; 90935; 90937; 93005; 94640; 94760; 97110-GP; 97116-GP; 97530-GP; 99285; C1751; C9113; J0456; J0690; J0696; J1450; J1644; J1815; J2250; J2405; J2997; J3010; J3430; J3475; J3480; J3490; J7030; J7040; J7042; J7050; J7060; J7613; P9021; P9046